=== PATIENT | male | born 1935 | race Hispanic/Latino ===

== ENCOUNTER 2016-12-18 16:32 | Emergency (ER) | payer MEDICARE ==
[2016-12-18 16:33] VITALS: BMI 27.3
[2016-12-18 16:51] VITALS: TEMP 97.5; O2SAT 98
[2016-12-18] MEDS ORDERED: Sodium Chloride 0.9% 1,000 ML IV STA (17:09)
--- NOTE | 2016-12-18 17:24 | ED PDOC ---
Arrival/HPI - General Chief Complaint: Abdominal Pain Time Seen by Provider: 12/18/16 17:09 Historian: Patient - History of Present Illness Narrative History of Present Illness (Text): 12/18/16 17:09 A 81 year old male presents to the emergency department complaining of non bloody watery diarrhea for the past 3 days. Patient denies any abdominal pain but states he does feel bloated. He denies any vomiting or other complaints at this time. PMD: Dr. Nguyen Time/Duration: Other Symptom Onset: Sudden Symptom Course: Unchanged Quality: Other Activities at Onset: Rest Context: Home Past Medical History - Provider Review Nursing Documentation Reviewed: Yes - Infectious Disease Hx of Infectious Diseases: None - Reproductive Currently : No - Cardiac Hx Cardiac Disorders: Yes Hx Congestive Heart Failure: Yes Hx Hypertension: Yes Other/Comment: bypass x5 in 2001 - Pulmonary Hx Respiratory Disorders: Yes Hx Chronic Obstructive Pulmonary Disease (COPD): Yes Other/Comment: pulmonary HTN - Neurological Hx Neurological Disorder: No - HEENT Hx HEENT Disorder: Yes ([place]) Hx Deafness: Yes ([place]) Other/Comment: b/l hearingaids - Renal Hx Renal Disorder: No - Endocrine/Metabolic Hx Endocrine Disorders: Yes Hx Diabetes Mellitus Type 2: Yes ([place], no meds) Hx Hypothyroidism: Yes - Hematological/Oncological Hx Cancer: Yes (prostate) - Integumentary Hx Dermatological Disorder: Yes Hx Psoriasis: Yes - Musculoskeletal/Rheumatological Hx Arthritis: Yes - Gastrointestinal Hx Gastrointestinal Disorders: Yes Hx Gastroesophageal Reflux: Yes Other/Comment: POOR APPETITE, DIARRHEA - Genitourinary/Gynecological Hx Genitourinary Disorders: Yes Hx Prostate Problems: Yes (PROSTATE CA) - Psychiatric Hx Psychophysiologic Disorder: No Hx Depression: No Hx Emotional Abuse: No Hx Psychosis: No Hx Substance Use: No - Surgical History Hx Joint Replacement: Yes (left knee) - Anesthesia Hx Anesthesia: Yes Hx Anesthesia Reactions: No - Suicidal Assessment Feels Threatened In Home Enviroment: No Family/Social History - Physician Review Nursing Documentation Reviewed: Yes Family/Social History: Unknown Family HX Smoking Status: Former Smoker Hx Alcohol Use: No Hx Substance Use: No Hx Substance Use Treatment: No Allergies/Home Meds Allergies/Adverse Reactions: Allergies Penicillins Allergy (Verified 12/18/16 16:40) SWELLING Home Medications: Home Meds Medication Instructions Recorded Confirmed Atorvastatin Calcium [Lipitor] 20 mg PO DAILY 05/05/14 12/18/16 Esomeprazole Magnesium [Nexium] 40 mg PO DAILY 05/05/14 12/18/16 Fenofibrate [Tricor] 145 mg PO DAILY 05/05/14 12/18/16 Fish Oil 1 cap PO DAILY 05/05/14 12/18/16 Sotalol HCl [Betapace] 80 mg PO BID 05/05/14 12/18/16 Tamsulosin [Flomax] 1 cap PO BID 05/05/14 12/18/16 Prednisone 5 mg PO DAILY 07/12/14 12/18/16 Aspirin [Ecotrin] 81 mg PO DAILY 07/29/15 12/18/16 Calcim/ Manesium 1 tab PO DAILY 07/29/15 12/18/16 Furosemide [Lasix] 20 mg PO DAILY 07/29/15 12/18/16 Ginko Biloba 1 tab PO DAILY 07/29/15 12/18/16 Levothyroxine [Synthroid] 0.075 mg PO DAILY 07/29/15 12/18/16 Multivit-Min/FA/Lycopen/Lutein 1 each PO DAILY 07/29/15 12/18/16 [Centrum Silver Tablet] busPIRone [Buspar] 5 mg PO DAILY 07/29/15 12/18/16 hydrALAZINE [hydralazine 25 mg PO BID 07/29/15 12/18/16 Hydrochloride] Riociguat [Adempas] 2.5 mg PO TID 12/18/16 12/18/16 Physical Exam - Physical Exam Narrative Physical Exam (Text): - Review of Systems Constitutional: Normal. absent: Fatigue, Weight Change, Fevers Eyes: Normal ENT: Normal Respiratory: Normal absent: SOB, Cough, Sputum Cardiovascular: Normal absent: Chest pain, Palpitations, Syncope Gastrointestinal: Diarrhea. Feeling bloated. absent: Abdominal pain, Nausea, Vomiting Genitourinary: Normal. absent: Dysuria, Frequency, Hematuria Musculoskeletal: Normal. absent: Arthralgias, Back Pain, Neck Pain Skin: Normal Neurological: Normal absent: Focal Weakness Endocrine: Normal Hemo/Lymphatic: Normal Psychiatric: Normal - Physical exam Patient appears age appropriate, speaking full sentences without difficulty - Systems Exam Head: Present: Atraumatic, Normocephalic Pupils: Present: PERRL Extraocular Muscles: Present: EOMI Conjunctiva: Present: Normal Mouth: Present: Moist Mucous Membranes Neck: Present: Normal Range of Motion. No: MIDLINE TENDERNESS, Paraspinal Tenderness Respiratory/Chest: Present: Clear to Auscultation, Good Air Exchange. No: Respiratory Distress, Accessory Muscle Use, Tachypneic Cardiovascular: Present: Regular Rate and Rhythm, Normal S1, S2, Peripheral Pulses Present. No: Murmurs Abdomen: Present: Normal Bowel Sounds. Slightly distended. hyper-tympanic to percussion. No: Tenderness, Peritoneal Signs, Rebound, Guarding Back: Present: Normal Inspection. No: Midline Tenderness, Paraspinal Tenderness Upper Extremity: Present: Normal Inspection. No: Cyanosis, Edema Lower Extremity: Present: Normal Inspection. No: Edema Neurological: Present: GCS=15, Speech Normal, cranial nerves II through XII fully intact with no cerebellar abnormality, neuro-sensory fully intact. No focal neurological deficits. Skin: Present: Warm, Dry, Normal Color. No: Rashes Lymphatic: Present: OX3, NI, NC Psychiatric: Present: Alert, Oriented x 3, Normal Insight, Normal Concentration Vital Signs Reviewed: Yes Vital Signs Temp Pulse Resp BP Pulse Ox 12/18/16 21:06 64 18 170/95 H 98 12/18/16 18:32 66 16 146/88 98 12/18/16 16:49 97.5 F L 62 18 158/80 H 98 Temperature: Afebrile Blood Pressure: Hypertensive Pulse: Regular Respiratory Rate: Normal Appearance: Positive for: Well-Appearing, Non-Toxic, Comfortable Pain Distress: None Mental Status: Positive for: Alert and Oriented X 3 Medical Decision Making ED Course and Treatment: 12/18/16 17:09 Impression: A 81 year old male with non bloody watery diarrhea and abdominal bloating. On physical examination, the patient has a slightly distended abdomen. Differential Diagnosis include but are not limited to: Viral illness vs. dehydration vs. electrolyte imbalance Plan: -- EKG -- Abdomen/Pelvis CT -- Labs -- Urinalysis -- IV Fluids -- Reassess and disposition Progress Notes: EKG: Ordered, reviewed, and independently interpreted the EKG. Rate : 60 BPM Rhythm : NSR Interpretation : No ST-segment elevations, normal intervals. Interpreted by me. 12/18/16 20:18 CT [facility] IMPRESSION: No acute solid visceral abnormality; prostate seeds; mild cardiomegaly and atherosclerotic disease; mild ileus, no obstruction, no CT findings of appendicitis or diverticulitis Additional findings as described above. Dictated and Authenticated by: Mary Hoyt MD pt in no distress pt informed of CT findings and I recommended observation in the hospital pt states he would like to be dc'd home instead On reevaluation, patient reports that he feels much better and would like to be discharged home. Patient's repeat abdominal exam is soft, nontender, non distended with positive bowel sounds in all 4 quadrants and no peritoneal signs. Patient is tolerating PO without any difficulty. Pt states he understands to return to the ER right away for new or worsening symptoms or for inability to f/u with PMD or specialist as instructed. Patient states that he fully agrees with and understands discharge instructions. States that he agrees with the plan and disposition. Verbalized and repeated discharge instructions and plan. I have given the patient opportunity to ask any additional questions. 12/22/16 08:06 spoke with patient this morning, states that he has no n/v, no f/c, states his abd distention resolved and he is eating well. - Lab Interpretations Microbiology Results: Microbiology Results 12/18/16 17:50 Blood-Venous Blood Culture - Preliminary NO GROWTH AFTER 3 DAYS 12/18/16 17:30 Blood-Venous Blood Culture - Preliminary NO GROWTH AFTER 3 DAYS Lab Results: 12/18/16 17:30 12/18/16 17:30 Lab Results 12/18/16 17:30: Sodium 140, Potassium 4.3, Chloride 108 H, Carbon Dioxide 25, Anion Gap 11, BUN 42 H, Creatinine 1.6 H, Est GFR ( Amer) 50, Est GFR ( Non-Af Amer) 41, Random Glucose 73, Calcium 8.7, Total Bilirubin 0.4, AST 28, ALT 29, Alkaline Phosphatase 32 L, Total Protein 6.3, Albumin 3.3, Globulin 3.0 , Albumin/Globulin Ratio 1.1, Lipase 125 12/18/16 17:30: PT 13.1 H, INR 1.21 H, APTT 24.5 12/18/16 17:30: WBC 7.0 D, RBC 4.05, Hgb 9.2 L, Hct 31.6 L, MCV 78.0 L, MCH 22.7 L, MCHC 29.1 L, RDW 16.3 H, Plt Count 172, MPV 9.4, Gran % 67.2, Lymph % ( Auto) 21.1 L, Nicholas % (Auto) 9.2 H, Eos % (Auto) 2.1, Baso % (Auto) 0.4, Gran # 4.69, Lymph # 1.5, Nicholas # 0.6, Eos # 0.2, Baso # 0.03 I have reviewed the lab results: Yes - RAD Interpretation Radiology Orders: 12/18/16 17:10 ABD & PELVIS W/O PO OR IV CONT [CT] Stat - Medication Orders Current Medication Orders: Discontinued Medications Sodium Chloride (Sodium Chloride 0.9%) 1,000 mls @ 1,000 mls/hr IV .Q1H STA Stop: 12/18/16 18:08 Last Admin: 12/18/16 17:30 Dose: 1,000 mls/hr - Scribe Statement The provider has reviewed the documentation as recorded by the Angelaibgerardo Malone Provider Scribe Attestation: All medical record entries made by the Scribe were at my direction and personally dictated by me. I have reviewed the chart and agree that the record accurately reflects my personal performance of the history, physical exam, medical decision making, and the department course for this patient. I have also personally directed, reviewed, and agree with the discharge instructions and disposition. Disposition/Present on Arrival - Present on Arrival Any Indicators Present on Arrival: No History of DVT/PE: No History of Uncontrolled Diabetes: No Urinary Catheter: No History of Decub. Ulcer: No History Surgical Site Infection Following: None - Disposition Have Diagnosis and Disposition been Completed?: Yes Diagnosis: Diarrhea Disposition: HOME/ ROUTINE Disposition Time: 20:29 Patient Plan: Discharge Condition: GOOD Discharge Instructions (ExitCare): Acute Diarrhea (ED), Ileus (ED) Additional Instructions: PLEASE RETURN TO THE ER RIGHT AWAY FOR NAUSEA, VOMITING, DIARRHEA, ABDOMINAL PAIN OR BLOATING, FEVERS, CHILLS. PLEASE RETURN TO THE EMERGENCY DEPARTMENT FOR NEW OR WORSENING SYMPTOMS. RETURN RIGHT AWAY IF YOU CANNOT FOLLOW UP WITH YOUR PRIMARY CARE DOCTOR, CLINIC, OR SPECIALIST IN 1-2 DAYS. Referrals: Riccardo Nguyen MD [Family Provider] - Follow up with primary
[2016-12-18 17:48] LABS: ALB/GLOB RATIO 1.1 (1.1-1.8); ALBUMIN 3.3 g/dL (3.0-4.8); CALCIUM 8.7 mg/dL (8.4-10.5)
[2016-12-18 17:50] LABS: INR 1.21 (0.93-1.08); PARTIAL THROMBOPLASTIN TIME 24.5 Seconds (23.7-30.8); PROTHROMBIN TIME 13.1 Seconds (9.9-11.8)
[2016-12-18 17:52] LABS: BASO # 0.03 K/mm3 (0.0-2.0); BASO % 0.4 % (0.0-3.0); EOS # 0.2 (0.0-0.7); EOS % 2.1 % (1.5-5.0); GRAN # 4.69 (1.4-6.5); GRAN % 67.2 % (50.0-68.0); HEMOGLOBIN 9.2 gm/dL (14.0-18.0); LYMPH # 1.5 (1.2-3.4); LYMPH % 21.1 % (22.0-35.0); MEAN CORPUSCULAR HEMOGLOBIN 22.7 pg (25.0-35.0); MEAN CORPUSCULAR HGB CONC 29.1 g/dl (31.0-37.0); MEAN PLATELET VOLUME 9.4 fl (7.0-11.0); MONO # 0.6 (0.1-0.6); MONO % 9.2 % (1.0-6.0); PLATELET COUNT 172 10^3/uL (120.0-450.0); RBC 4.05 10^6/uL (3.5-6.1); RED CELL DISTRIBUTION WIDTH 16.3 % (11.5-14.5)
--- NOTE | 2016-12-18 20:16 | CT ---
EXAM: CT Abdomen and Pelvis Without Intravenous Contrast CLINICAL HISTORY: 81 years old, male; Pain; Abdominal pain; Acute; Additional info: Diarrhea TECHNIQUE: Axial computed tomography images of the abdomen and pelvis without intravenous contrast. This CT exam was performed using one or more of the following dose reduction techniques: automated exposure control, adjustment of the mA and/or kV according to patient size, and/or use of iterative reconstruction technique. Coronal and sagittal reformatted images were created and reviewed. EXAM DATE/TIME: 12/18/2016 5:10 PM COMPARISON: There are no prior studies for comparison. FINDINGS: Lower thorax: The heart is mildly enlarged. There are coronary calcifications. There is atelectasis and scarring at the lung bases. There is a hiatal hernia. ABDOMEN: Liver: unremarkable Gallbladder and bile ducts: unremarkable Pancreas: Pancreas is atrophic and fatty replaced. Spleen: There is a small granuloma in the spleen. Adrenals: unremarkable Kidneys and ureters: There is focal scarring in both kidneys. There is mild atrophy.There is no pelvocaliectasis or ureterectasis. Stomach and bowel: Stomach is almost empty. Rotation is normal. Small bowel is mildly distended with air and fluid. There is no obstruction. Terminal ileum is unremarkable. Appendix is unremarkable.There is diverticulosis. Appendix: See stomach and bowel PELVIS: Bladder: Bladder is incompletely distended. Reproductive: There are multiple seeds within the prostate. Seminal vesicles have the expected configuration. ABDOMEN and PELVIS: Intraperitoneal space: There is no free air. There is no free fluid. Bones/joints: There are postsurgical changes of median sternotomy. Bony structures are osteopenic.There are degenerative changes in the osseus structures. Soft tissues: There are surgical clips in both inguinal regions. There are bilateral fat-containing inguinal hernias. Vasculature: There are vascular calcifications. Lymph nodes: There is no pathologic adenopathy. IMPRESSION: No acute solid visceral abnormality; prostate seeds; mild cardiomegaly and atherosclerotic disease; mild ileus, no obstruction, no CT findings of appendicitis or diverticulitis Additional findings as described above.
[2016-12-18 21:08] VITALS: BP 170/95; PULSE 64; RESP 18
--- NOTE | 2016-12-19 10:42 | CARD ---
APPROVED REPORT EKG Measurement Heart [id number] <Conclusion> Normal sinus rhythm Small q waves 2,3,F, possible IMI, age unknown
== END 2016-12-18 21:04 | disposition home or self-care (01) ==
LOC: ED 16:32
DX: R19.7 Diarrhea, unspecified (principal); I11.0 Hypertensive heart disease with heart failure; I50.9 Heart failure, unspecified; E11.9 Type 2 diabetes mellitus without complications; Z87.891 Personal history of nicotine dependence
CPT/HCPCS: 74176; 80053; 83690; 85025; 85610; 85730; 87040; 93005; 96360; 99284; J7040

== ENCOUNTER 2017-01-23 18:43 | Emergency (ER) | payer MEDICARE ==
[2017-01-23 18:43] VITALS: BMI 27.3
[2017-01-23 19:05] VITALS: RESP 16; TEMP 98.1
[2017-01-23] MEDS ORDERED: Tmp-Smz 800 mg-160 mg DS Tab PO STA (19:37)
[2017-01-23] MEDS ORDERED: TDAP Vaccine 0.5 mL Syr IM ONE (19:37)
--- NOTE | 2017-01-23 19:37 | ED PDOC ---
Arrival/HPI - General Historian: Patient <Alli Alvarez - Last Filed: 01/23/17 22:10> <Osmar Cast - Last Filed: 01/23/17 22:45> - General Chief Complaint: Trauma Time Seen by Provider: 01/23/17 19:20 - History of Present Illness Narrative History of Present Illness (Text): 01/23/17 19:30 81 y/o male, pmh including, renal failure/chf/dm/cad/hyperlipidemia, penicillin allergy, last tetanus doesn't remember, c/o slipped and fall on the rt. sided facial region x 2 hours. Pt. stated that he slipped and fall on the rt. side of the face, sustained rt. eyebowl laceration and no LOC, no nausea or vomiting , no fever or chills, no headache or night sweat, no dizziness, no other medical or psychological complaints. (Alli Alvarez) Past Medical History - Provider Review Nursing Documentation Reviewed: Yes - Infectious Disease Hx of Infectious Diseases: None - Reproductive Currently : No - Cardiac Hx Cardiac Disorders: Yes Hx Congestive Heart Failure: Yes Hx Hypertension: Yes Other/Comment: bypass x5 in 2001 - Pulmonary Hx Respiratory Disorders: Yes Hx Chronic Obstructive Pulmonary Disease (COPD): Yes Other/Comment: pulmonary HTN - Neurological Hx Neurological Disorder: No - HEENT Hx HEENT Disorder: Yes ([place]) Hx Deafness: Yes ([place]) Other/Comment: b/l hearingaids - Renal Hx Renal Disorder: No - Endocrine/Metabolic Hx Endocrine Disorders: Yes Hx Diabetes Mellitus Type 2: Yes ([place], no meds) Hx Hypothyroidism: Yes - Hematological/Oncological Hx Cancer: Yes (prostate) - Integumentary Hx Dermatological Disorder: Yes Hx Psoriasis: Yes - Musculoskeletal/Rheumatological Hx Arthritis: Yes - Gastrointestinal Hx Gastrointestinal Disorders: Yes Hx Gastroesophageal Reflux: Yes Other/Comment: POOR APPETITE, DIARRHEA - Genitourinary/Gynecological Hx Genitourinary Disorders: Yes Hx Prostate Problems: Yes (PROSTATE CA) - Psychiatric Hx Psychophysiologic Disorder: No Hx Depression: No Hx Emotional Abuse: No Hx Psychosis: No Hx Substance Use: No - Surgical History Hx Joint Replacement: Yes (left knee) - Anesthesia Hx Anesthesia: Yes Hx Anesthesia Reactions: No - Suicidal Assessment Feels Threatened In Home Enviroment: No <Alli Alvarez - Last Filed: 01/23/17 22:10> Family/Social History - Physician Review Nursing Documentation Reviewed: Yes Family/Social History: Unknown Family HX Smoking Status: Former Smoker Hx Alcohol Use: No Hx Substance Use: No Hx Substance Use Treatment: No <Alli Alvarez - Last Filed: 01/23/17 22:10> Allergies/Home Meds <Alli Alvarez - Last Filed: 01/23/17 22:10> <Osmar Cast - Last Filed: 01/23/17 22:45> Allergies/Adverse Reactions: Allergies Penicillins Allergy (Verified 01/23/17 19:05) SWELLING Home Medications: Home Meds Medication Instructions Recorded Confirmed Atorvastatin Calcium [Lipitor] 20 mg PO DAILY 05/05/14 01/23/17 Esomeprazole Magnesium [Nexium] 4 mg PO DAILY 05/05/14 01/23/17 Fenofibrate [Tricor] 145 mg PO DAILY 05/05/14 01/23/17 Fish Oil 1 cap PO DAILY 05/05/14 01/23/17 Sotalol HCl [Betapace] 80 mg PO BID 05/05/14 01/23/17 Tamsulosin [Flomax] 1 cap PO BID 05/05/14 01/23/17 Prednisone 5 mg PO DAILY 07/12/14 01/23/17 Aspirin [Ecotrin] 81 mg PO DAILY 07/29/15 01/23/17 Calcim/ Manesium 1 tab PO DAILY 07/29/15 01/23/17 Furosemide [Lasix] 20 mg PO DAILY 07/29/15 01/23/17 Ginko Biloba 1 tab PO DAILY 07/29/15 01/23/17 Levothyroxine [Synthroid] 0.075 mg PO DAILY 07/29/15 01/23/17 Multivit-Min/FA/Lycopen/Lutein 1 each PO DAILY 07/29/15 12/18/16 [Centrum Silver Tablet] busPIRone [Buspar] 5 mg PO DAILY 07/29/15 01/23/17 hydrALAZINE [hydralazine 25 mg PO BID 07/29/15 01/23/17 Hydrochloride] Riociguat [Adempas] 2.5 mg PO TID 12/18/16 01/23/17 Calcium Carb/Vitamin D3/Vit K1 1 tab PO DAILY 01/23/17 01/23/17 [Citracal Soft Chew] Cholecalciferol [Vitamin D] 1,000 iu PO DAILY 01/23/17 01/23/17 Fluticasone/Vilanterol [Breo 1 pow IH 01/23/17 Ellipta] Furosemide [Lasix] 01/23/17 Review of Systems - Review of Systems Constitutional: absent: Fatigue, Fevers Eyes: absent: Vision Changes ENT: absent: Hearing Changes Respiratory: absent: SOB, Cough Cardiovascular: absent: Chest Pain Gastrointestinal: absent: Abdominal Pain, Nausea, Vomiting Musculoskeletal: absent: Arthralgias, Back Pain, Neck Pain, Joint Swelling Skin: Laceration. absent: Rash, Pruritis, Skin Lesions, Abscess, Ulcer, Cellulitis Neurological: absent: Headache, Dizziness, Focal Weakness, Gait Changes <Alli Alvarez Q - Last Filed: 01/23/17 22:10> Physical Exam Vital Signs Reviewed: Yes Temperature: Afebrile Blood Pressure: Hypertensive Pulse: Regular Respiratory Rate: Normal Appearance: Positive for: Well-Appearing, Non-Toxic, Comfortable Pain Distress: Mild Mental Status: Positive for: Alert and Oriented X 3 - Systems Exam Head: Present: Atraumatic, Normocephalic, Other (Facial: visible rt. eyebrow tearing laceration approx. 2.5cm noted with mild oozing, mild superfical skin flapping avulsion noted on the rt. lateral eyebrow region approx. 0.75cm diameter, there is rt. periorbital swelling. ) Pupils: Present: PERRL Extroacular Muscles: Present: EOMI Conjunctiva: Present: Normal Ears: Present: NORMAL TM, Normal Canal. No: Erythema Mouth: Present: Moist Mucous Membranes Nose (External): Present: Contusion, Other (+ttp). No: Abrasion, Laceration, Lesions Neck: Present: Normal Range of Motion, Trachea Midline. No: MIDLINE TENDERNESS , Paraspinal Tenderness, Lymphadenopathy Respiratory/Chest: Present: Clear to Auscultation, Good Air Exchange. No: Respiratory Distress, Accessory Muscle Use Cardiovascular: Present: Regular Rate and Rhythm, Normal S1, S2. No: Murmurs Abdomen: Present: Normal Bowel Sounds. No: Tenderness, Distention, Peritoneal Signs Back: Present: Normal Inspection. No: Midline Tenderness, Paraspinal Tenderness , Pain with Leg Raise, Decubitus Ulcer Upper Extremity: Present: Normal Inspection. No: Cyanosis, Edema Lower Extremity: Present: Normal Inspection. No: Edema Neurological: Present: GCS=15, Speech Normal, Motor Func Grossly Intact, Gait Normal, Memory Normal Skin: Present: Warm, Dry, Normal Color. No: Rashes Psychiatric: Present: Alert, Oriented x 3, Normal Insight, Normal Concentration <Alli Alvarez - Last Filed: 01/23/17 22:10> Medical Decision Making - RAD Interpretation Band Saw Marker: Radiologist <Alli Alvarez - Last Filed: 01/23/17 22:10> <Osmar Cast - Last Filed: 01/23/17 22:45> ED Course and Treatment: 01/23/17 19:46 -tdap/bactrim ds -CT head and facial 01/23/17 22:10 -CT head show no acute traumatic findings -CT facial show nasal fracture with sinusitis -I will put the patient on the clindamycin since he is allergic to penicillin. -sensation intact, motor 5/5, wound irrigate with 1000cc of normal saline, clean with betadine, 1% lidocaine injected approx. 0.5cc, 6-0 nylon made 4 sutures, hemostasis obtained, dermabond to the skin flap, bacitracin applied, sensation intact, motor 5/5. -Discharge home with clindamycin, avoid blowing or rubbing the nose, bacitracin oinment, take tylenol at home for pain as needed, sutures usually can be removed by day 6-7, follow up with your own pmd and ENT within 2 days, return to the ER for any new or worsening signs or symptoms. (Alli Alvarez) - RAD Interpretation Radiology Orders: 01/23/17 19:37 HEAD W/O CONTRAST [CT] Stat MAXILLOFACIAL W/O CONTRAST [CT] Stat CT Head: FINDINGS: Limitations: The examination is motion limited. 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 No intracranial hemorrhage. There is global parenchymal volume loss. Periventricular hypoattenuation is likely due to small vessel disease. No evidence of evolved territorial infarct or cerebral edema. No mass effect or midline shift. Ventricles: Prominent ventricles secondary to volume loss. Bones/joints: No acute osseous abnormality. Soft tissues: No soft tissue swelling. Sinuses: Opacified left sphenoid sinus. Mastoid air cells: Mastoid air cells are well-aerated. IMPRESSION: 1. Opacified left sphenoid sinus. 2. Motion limited study without acute intracranial findings. Thank you for allowing us to participate in the care of your patient. Dictated and Authenticated by: Oscar Mcbride MD 01/23/2017 9:43 PM Eastern Time ( & John) CT Facial: FINDINGS: Bones/joints: Nondisplaced fracture of the right nasal bone. Soft tissues: Right periorbital soft tissue swelling. Orbits: Unremarkable. Sinuses: Completely opacified left sphenoid sinus with high density secretions. Mucosal thickening of the frontal recesses. IMPRESSION: 1. Completely opacified left sphenoid sinus with high density secretions. 2. Nondisplaced fracture of the right nasal bone, indeterminate acuity. No fracture of the bony orbit. Thank you for allowing us to participate in the care of your patient. Dictated and Authenticated by: Oscar Mcbride MD 01/23/2017 9:48 PM Eastern Time ( & John) (Alli Alvarez) - Medication Orders Current Medication Orders: Discontinued Medications Lidocaine HCl (Lidocaine 1% (20ml)) Confirm Administered Dose 20 ml .ROUTE .STK- MED ONE Stop: 01/23/17 21:29 Tetanus/Reduced Diphtheria/Acell Pertussis (Boostrix Vaccine Inj) 0.5 ml IM .ONCE ONE Stop: 01/23/17 19:38 Last Admin: 01/23/17 20:01 Dose: 0.5 ml Trimethoprim/Sulfamethoxazole (Bactrim Ds Tab) 1 tab PO STAT STA PRN Reason: Protocol Stop: 01/23/17 19:38 Last Admin: 01/23/17 20:06 Dose: 1 tab - PA / FLATWORK CATCHER / Resident Statement RACHAEL has reviewed & agrees with the documentation as recorded. <Alli Alvarez - Last Filed: 01/23/17 22:10> - PA / FLATWORK CATCHER / Resident Statement RACHAEL has reviewed & agrees with the documentation as recorded. RACHAEL has examined the patient and agrees with the treatment plan. <Osmar Cast - Last Filed: 01/23/17 22:45> Disposition/Present on Arrival - Present on Arrival Any Indicators Present on Arrival: No History of DVT/PE: No History of Uncontrolled Diabetes: No Urinary Catheter: No History of Decub. Ulcer: No History Surgical Site Infection Following: None - Disposition Have Diagnosis and Disposition been Completed?: Yes Disposition Time: 19:48 Patient Plan: Discharge <Alli Alvarez - Last Filed: 01/23/17 22:10> <Osmar Cast - Last Filed: 01/23/17 22:45> - Disposition Diagnosis: Accidental fall, Facial laceration, Facial contusion, Facial abrasion, Nasal fracture, Sinusitis Disposition: HOME/ ROUTINE Patient Problems: Current Active Problems Problem Status Onset Accidental fall Acute Facial abrasion Acute Facial contusion Acute Facial laceration Acute Nasal fracture Acute Sinusitis Acute Condition: GOOD Additional Instructions: -Discharge home with clindamycin, avoid blowing or rubbing the nose, bacitracin oinment, take tylenol at home for pain as needed, sutures usually can be removed by day 6-7, follow up with your own pmd and ENT within 2 days, return to the ER for any new or worsening signs or symptoms. Prescriptions: Clindamycin [Cleocin] 300 mg PO TID #30 cap Referrals: Riccardo Nguyen MD [Primary Care Provider] - Follow up with primary Chacho Vazquez DO [Staff Provider] - Follow up with primary Forms: [employer] (Welsh)
[2017-01-23] MEDS ORDERED: Lidocaine 1% Inj (20ml) ONE (21:28)
[2017-01-23 22:36] VITALS: PULSE 76; O2SAT 98
[2017-01-24 01:02] VITALS: BP 138/80
--- NOTE | 2017-01-24 07:48 | CT ---
PROCEDURE: CT HEAD WITHOUT CONTRAST. HISTORY: fall COMPARISON: 05/18/2013 TECHNIQUE: Axial computed tomography images were obtained through the head/brain without intravenous contrast. Radiation dose: Total exam DLP = 7-5.84 mGy-cm. This CT exam was performed using one or more of the following dose reduction techniques: Automated exposure control, adjustment of the mA and/or kV according to patient size, and/or use of iterative reconstruction technique. FINDINGS: Examination is somewhat limited due to patient motion artifact. HEMORRHAGE: No intracranial hemorrhage. BRAIN: No mass effect or edema. 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 Old small right cerebellar hemispheric lacunar infarct. No evidence of acute infarct. Minimal chronic periventricular white matter ischemic change. Mild diffuse age-appropriate cerebral atrophy. VENTRICLES: Unremarkable. No hydrocephalus. CALVARIUM: Unremarkable. PARANASAL SINUSES: Chronic sphenoid sinusitis. MASTOID AIR CELLS: Unremarkable as visualized. No inflammatory changes. OTHER FINDINGS: None. IMPRESSION: No intracranial mass, hemorrhage or evidence of acute infarct. Limited examination due to patient motion. 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 Age appropriate involutional change. Chronic sphenoid sinusitis. Preliminary interpretation of this examination was reported by [facility] at 9:43 p.m. on 01/23/2017. There is concurrence of this report with the preliminary interpretation.
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
== END 2017-01-23 22:30 | disposition home or self-care (01) ==
LOC: ED 18:43
DX: S01.111A Laceration without foreign body of right eyelid and periocular area, initial encounter (principal); S02.2XXA Fracture of nasal bones, initial encounter for closed fracture; W01.0XXA Fall on same level from slipping, tripping and stumbling without subsequent striking against object, initial encounter; J32.9 Chronic sinusitis, unspecified; I10 Essential (primary) hypertension; I50.9 Heart failure, unspecified; I25.10 Atherosclerotic heart disease of native coronary artery without angina pectoris; E78.5 Hyperlipidemia, unspecified; E11.9 Type 2 diabetes mellitus without complications; Z88.0 Allergy status to penicillin; Z23 Encounter for immunization; Z87.891 Personal history of nicotine dependence

== ENCOUNTER 2017-07-06 14:36 | Emergency (ER) | payer OTHER, MEDICARE ==
[2017-07-06 14:37] VITALS: BMI 27.3
[2017-07-06 14:47] VITALS: RESP 18; TEMP 98.1; O2SAT 97
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
[2017-07-06 16:21] LABS: BASO # 0.02 K/mm3 (0.0-2.0); BASO % 0.4 % (0.0-3.0); EOS # 0.1 (0.0-0.7); EOS % 2.1 % (1.5-5.0); GRAN # 3.74 (1.4-6.5); GRAN % 73.1 % (50.0-68.0); HEMOGLOBIN 9.4 g/dL (14.0-18.0); LYMPH # 0.9 (1.2-3.4); LYMPH % 16.6 % (22.0-35.0); MEAN CELL VOLUME 82.2 fl (80.0-105.0); MEAN CORPUSCULAR HEMOGLOBIN 24.6 pg (25.0-35.0); MEAN CORPUSCULAR HGB CONC 29.9 g/dl (31.0-37.0); MEAN PLATELET VOLUME 10.5 fl (7.0-11.0); MONO # 0.4 (0.1-0.6); MONO % 7.8 % (1.0-6.0); RBC 3.82 10^6/uL (3.5-6.1); RED CELL DISTRIBUTION WIDTH 15.8 % (11.5-14.5); WHITE BLOOD COUNT 5.1 10^3/ul (4.5-11.0)
[2017-07-06 16:28] LABS: ALB/GLOB RATIO 1.3 (1.1-1.8); ALBUMIN 3.7 g/dL (3.0-4.8); ALT/SGPT 32 U/L (7-56); AST/SGOT 30 U/L (17-59); BLOOD UREA NITROGEN 44 mg/dL (7-21); CALCIUM 9.5 mg/dL (8.4-10.5); GFR AFRICAN-AMERICAN 47; GFR NON-AFRICAN AMERICAN 39; MAGNESIUM 1.6 mg/dL (1.7-2.2)
[2017-07-06 16:36] LABS: TROPONIN I < 0.01 ng/mL
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
[2017-07-06 17:44] VITALS: BP 138/69; PULSE 69
--- NOTE | 2017-07-07 10:06 | CARD ---
APPROVED REPORT EKG Measurement Heart [id number] <Conclusion> Normal sinus rhythm Inferior infarct, old Prolonged QTc
== END 2017-07-06 18:00 | disposition home or self-care (01) ==
LOC: ED 14:36
DX: S01.01XA Laceration without foreign body of scalp, initial encounter (principal); V43.52XA Car driver injured in collision with other type car in traffic accident, initial encounter; E11.9 Type 2 diabetes mellitus without complications; E03.9 Hypothyroidism, unspecified; I25.10 Atherosclerotic heart disease of native coronary artery without angina pectoris; Z85.46 Personal history of malignant neoplasm of prostate; Z87.891 Personal history of nicotine dependence

== ENCOUNTER 2017-08-04 16:13 | Inpatient (IN) | payer MEDICARE ==
[2017-08-04 16:14] VITALS: BMI 27.3
--- NOTE | 2017-08-04 17:32 | ED PDOC ---
Arrival/HPI - General Chief Complaint: Flu-like Symptoms Time Seen by Provider: 08/04/17 16:48 Historian: Patient - History of Present Illness Narrative History of Present Illness (Text): 08/04/17 17:27 81 year old male, with past medical history of renal failure, CHF, COPD, diabetes, CAD, hyperlipidemia and penicillin allergy, presents to the Emergency department complaining of fever, productive cough, sinus congestion, generalized weakness and loss of appetite for past few days. Patient additionally informs diarrhea but denies abdominal pain. Patient denies any nausea, vomiting, chest pain, shortness of breath, sick contact or any other complaints. Time/Duration: < week Symptom Onset: Gradual Symptom Course: Unchanged Quality: Aching Activities at Onset: Light Context: Home Past Medical History - Provider Review Nursing Documentation Reviewed: Yes - Infectious Disease Hx of Infectious Diseases: None - Cardiac Hx Cardiac Disorders: Yes Hx Congestive Heart Failure: Yes Hx Hypertension: Yes Other/Comment: bypass x5 in 2001 - Pulmonary Hx Respiratory Disorders: Yes Hx Chronic Obstructive Pulmonary Disease (COPD): Yes Other/Comment: pulmonary HTN - Neurological Hx Neurological Disorder: No - HEENT Hx HEENT Disorder: Yes ([place]) Hx Deafness: Yes ([place]) Other/Comment: b/l hearingaids - Renal Hx Renal Disorder: No - Endocrine/Metabolic Hx Endocrine Disorders: Yes Hx Diabetes Mellitus Type 2: Yes (boarderline, no meds) Hx Hypothyroidism: Yes - Hematological/Oncological Hx Cancer: Yes (prostate) - Integumentary Hx Dermatological Disorder: Yes Hx Psoriasis: Yes - Musculoskeletal/Rheumatological Hx Arthritis: Yes - Gastrointestinal Hx Gastrointestinal Disorders: Yes Hx Gastroesophageal Reflux: Yes Other/Comment: POOR APPETITE, [place] - Genitourinary/Gynecological Hx Genitourinary Disorders: Yes Hx Prostate Problems: Yes (PROSTATE CA) - Psychiatric Hx Psychophysiologic Disorder: No Hx Depression: No Hx Emotional Abuse: No Hx Psychosis: No Hx Substance Use: No - Surgical History Hx Joint Replacement: Yes (left knee) - Anesthesia Hx Anesthesia: Yes Hx Anesthesia Reactions: No Hx Malignant Hyperthermia: No - Suicidal Assessment Feels Threatened In Home Enviroment: No Family/Social History - Physician Review Nursing Documentation Reviewed: Yes Family/Social History: Unknown Family HX Smoking Status: Former Smoker Hx Alcohol Use: No Hx Substance Use: No Hx Substance Use Treatment: No Allergies/Home Meds Allergies/Adverse Reactions: Allergies Penicillins Allergy (Verified 08/09/17 19:05) SWELLING Home Medications: Home Meds Medication Instructions Recorded Confirmed Atorvastatin Calcium [Lipitor] 20 mg PO DAILY 05/05/14 02/15/17 Fenofibrate [Tricor] 145 mg PO DAILY 05/05/14 02/15/17 Sotalol HCl [Betapace] 80 mg PO BID 05/05/14 02/15/17 Tamsulosin [Flomax] 1 cap PO BID 05/05/14 02/15/17 Aspirin [Ecotrin] 81 mg PO MWF 07/29/15 02/15/17 Calcim/ Manesium 1 tab PO DAILY 07/29/15 01/23/17 Furosemide [Lasix] 20 mg PO DAILY 07/29/15 02/15/17 Ginko Biloba 1 tab PO DAILY 07/29/15 02/15/17 Levothyroxine [Synthroid] 0.075 mg PO DAILY 07/29/15 02/15/17 Multivit-Min/FA/Lycopen/Lutein 1 each PO DAILY 07/29/15 02/15/17 [Centrum Silver Tablet] busPIRone [Buspar] 5 mg PO DAILY 07/29/15 02/15/17 hydrALAZINE [Apresoline] 25 mg PO BID 07/29/15 02/15/17 Riociguat [Adempas] 2.5 mg PO TID 12/18/16 02/15/17 Calcium Carb/Vitamin D3/Vit K1 1 tab PO DAILY 01/23/17 01/23/17 [Citracal Soft Chew] Fluticasone/Vilanterol [Breo 1 pow IH 01/23/17 Ellipta 100-25 Mcg INH] Review of Systems - Physician Review All systems were reviewed & negative as marked: Yes - Review of Systems Constitutional: Fevers Eyes: Normal ENT: Sinus Congestion Respiratory: Cough. absent: SOB Cardiovascular: Normal. absent: Chest Pain Gastrointestinal: Diarrhea. absent: Abdominal Pain, Nausea, Vomiting Genitourinary Male: Normal Musculoskeletal: Other (generalized weakness) Skin: Normal Neurological: Normal Endocrine: Normal Hemo/Lymphatic: Normal Psychiatric: Normal Physical Exam Vital Signs Reviewed: Yes Vital Signs Temp Pulse Resp BP Pulse Ox 08/04/17 21:40 72 18 152/82 H 95 08/04/17 20:14 80 18 160/82 H 97 08/04/17 16:28 97.9 F 74 18 124/65 97 Temperature: Afebrile Blood Pressure: Normal Pulse: Regular Respiratory Rate: Normal Appearance: Positive for: Well-Appearing, Non-Toxic, Comfortable Pain Distress: None Mental Status: Positive for: Alert and Oriented X 3 - Systems Exam Head: Present: Atraumatic, Normocephalic Pupils: Present: PERRL Extroacular Muscles: Present: EOMI Conjunctiva: Present: Normal Mouth: Present: Moist Mucous Membranes Neck: Present: Normal Range of Motion Respiratory/Chest: Present: Good Air Exchange, Rales, Rhonchi. No: Respiratory Distress, Accessory Muscle Use Cardiovascular: Present: Regular Rate and Rhythm, Normal S1, S2. No: Murmurs Abdomen: Present: Normal Bowel Sounds. No: Tenderness, Distention, Peritoneal Signs Back: Present: Normal Inspection Upper Extremity: Present: Normal Inspection. No: Cyanosis, Edema Lower Extremity: Present: Normal Inspection. No: Edema Neurological: Present: GCS=15, CN II-XII Intact, Speech Normal Skin: Present: Warm, Dry, Normal Color. No: Rashes Psychiatric: Present: Alert, Oriented x 3, Normal Insight, Normal Concentration Medical Decision Making ED Course and Treatment: 08/04/17 17:34 Impression: 81 year old male presents to the Emergency department for flu-like symptoms. Plan: -- VBG -- Labs -- Chest X-ray -- Blood Culture -- Rapid Flu -- Reassess and disposition Progress Notes: 08/04/17 19:30 EKG: Ordered, reviewed, and independently interpreted the EKG. Rate : 69 BPM Rhythm : NSR Interpretation : Sinus rhythm with premature supraventricular complexes. Comparison: EKG similar to performed on 07/06/17. Chest X-ray reviewed. No changes noted from Chest X-ray performed on 07/06/17. 08/04/17 20:09 EKG and Chest X-ray reviewed and shows no significant changes from those performed on 07/06/17. Patient's chief complaint was COPD, however due to troponin level of 5, it is believed that patient may have had a silent NH. Patient is recommended to follow-up with a credit risk manager. Patient will be admitted to the hospitalist's service in telemetry for further observation. Aspirin and Nitroglycerin will be administered to patient. Patient is already on beta fabrizio. 08/04/17 20:[address] May, who is aware and agrees with plan. - Lab Interpretations Microbiology Results: Microbiology Results 08/04/17 18:10 Blood-Venous Blood Culture - Preliminary NO GROWTH AFTER 48 HOURS 08/04/17 17:50 Blood-Venous Blood Culture - Preliminary NO GROWTH AFTER 48 HOURS Lab Results: 08/04/17 17:50 08/04/17 17:50 Lab Results 08/04/17 18:10: Influenza Typ A,B (EIA) Negative for flu a/b 08/04/17 17:50: Sodium 142, Chloride 107, Potassium 4.1, Carbon Dioxide 27, Anion Gap 13, BUN 35 H, Creatinine 1.7 H, Est GFR ( Amer) 47, Est GFR ( Non-Af Amer) 39, Random Glucose 81, Calcium 9.1, Total Bilirubin 0.3, AST 49, ALT 33, Alkaline Phosphatase 33 L D, Lactate Dehydrogenase 453, Total Creatine Kinase 121, Troponin I 5.11 H* D, NT-Pro-B Natriuret Pep 7210 H, Total Protein 5.5 L, Albumin 2.9 L, Globulin 2.6, Albumin/Globulin Ratio 1.1 08/04/17 17:50: pO2 41, VBG pH 7.27 L, VBG pCO2 57.0, VBG HCO3 26.2, VBG Total CO2 27.9, VBG O2 Sat (Calc) 80.1 H, VBG Base Excess -1.7 L, VBG Potassium 4.1, Sodium 139.0, Chloride 109.0 H, Glucose 86, Lactate 1.2, FiO2 21.0, Venous Blood Potassium 4.1 08/04/17 17:50: PT 15.9 H, INR 1.39 H 08/04/17 17:50: WBC 4.6, RBC 3.85, Hgb 9.1 L, Hct 31.1 L, MCV 80.8, MCH 23.6 L, MCHC 29.3 L, RDW 16.3 H, Plt Count 109 L, MPV 10.1, Gran % 74.1 H, Lymph % (Auto ) 12.7 L, [place] % (Auto) 9.5 H, Eos % (Auto) 3.5, Baso % (Auto) 0.2, Gran # 3.43 , Lymph # (Auto) 0.6 L, [place] # (Auto) 0.4, Eos # (Auto) 0.2, Baso # (Auto) 0.01 - RAD Interpretation Radiology Orders: 08/04/17 17:27 CHEST PORTABLE [RAD] Stat - Medication Orders Current Medication Orders: Discontinued Medications Acetylcysteine (Acetylcysteine 20%) 6 ml PO BID ADRIAN Stop: 08/06/17 23:59 Last Admin: 08/06/17 10:45 Dose: 6 ml Albuterol Sulfate (Albuterol 0.083% Inhal Nannette (2.5 Mg/3 Ml) Ud) 5 mg INH STAT STA Stop: 08/04/17 18:41 Last Admin: 08/04/17 21:26 Dose: 5 mg Albuterol/Ipratropium (Duoneb 3 Mg/0.5 Mg (3 Ml) Ud) 3 ml IH STAT STA Stop: 08/04/17 18:41 Last Admin: 08/04/17 21:26 Dose: 3 ml Aspirin (Aspirin Chewable) 324 mg PO STAT STA Stop: 08/04/17 19:25 Last Admin: 08/04/17 20:25 Dose: 324 mg Aspirin (Ecotrin) 81 mg PO [facility] [place]irin (Ecotrin) 81 mg PO DAILY [facility] Last Admin: 08/06/17 10:44 Dose: 81 mg Atorvastatin Calcium (Lipitor) 20 mg PO DAILY [facility] Last Admin: 08/06/17 10:44 Dose: 20 mg Buspirone HCl (Buspar) 5 mg PO DAILY [facility] PRN Reason: Protocol Last Admin: 08/06/17 10:44 Dose: 5 mg Behavioural Document 08/06/17 10:44 CD (Rec: 08/06/17 10:44 CD [id number]) Maintenance Maintenance Dose Yes Re-Assess: Reassess Psych Meds Document 08/06/17 11:44 CD (Rec: 08/06/17 12:27 CD [id number]) Reassess Psych Med Effective Clopidogrel Bisulfate (Plavix) 75 mg PO DAILY [facility] Last Admin: 08/06/17 10:43 Dose: 75 mg Clopidogrel Bisulfate (Plavix) 300 mg PO STAT STA Stop: 08/05/17 08:01 Last Admin: 08/05/17 08:14 Dose: 300 mg Fenofibrate (Tricor) 145 mg PO DAILY [facility] Last Admin: 08/06/17 10:43 Dose: 145 mg Furosemide (Lasix) 20 mg PO DAILY [facility] Last Admin: 08/06/17 10:44 Dose: 20 mg MAR Blood Pressure Document 08/06/17 10:44 CD (Rec: 08/06/17 10:44 CD [id number]) Blood Pressure Blood Pressure (100/60-150/90) 170/71 Furosemide (Lasix) 40 mg IVP ONCE ONE Stop: 08/05/17 01:17 Last Admin: 08/05/17 01:26 Dose: 40 mg MAR Blood Pressure Document 08/05/17 01:26 AP (Rec: 08/05/17 01:26 AP [id number]) Blood Pressure Blood Pressure (100/60-150/90) 148/78 IVP Administration Document 08/05/17 01:26 AP (Rec: 08/05/17 01:26 AP [id number]) Charges for Administration # of IVP Administrations 1 Guaifenesin (Robitussin) 200 mg PO Q4H PRN PRN Reason: Cough and congestion Heparin Sodium (Porcine) (Heparin) 5,700 units 70 units/kg (5700 units) IV ONCE ONE PRN Reason: Protocol Stop: 08/04/17 22:21 Last Admin: 08/04/17 23:22 Dose: 5,700 units eMAR Start Stop Document 08/04/17 23:22 AP (Rec: 08/04/17 23:22 AP [id number]) Intravenous Solution Start Date 08/04/17 Start Time 23:22 MAR aPTT Document 08/04/17 23:22 AP (Rec: 08/04/17 23:22 AP [id number]) aPTT aPTT (secs) 32.1 Hydralazine HCl (Apresoline) 25 mg PO BID [facility] Hydralazine HCl (Apresoline) 50 mg PO BID [facility] Last Admin: 08/06/17 10:43 Dose: 50 mg MAR Pulse and Blood Pressure Document 08/06/17 10:43 CD (Rec: 08/06/17 10:44 CD [id number]) Blood Pressure Blood Pressure (100/60-150/90) 170/71 Hydralazine HCl (Apresoline) 10 mg PO QID PRN PRN Reason: for sbp>170 Sodium Chloride (Sodium Chloride 0.9%) 500 mls @ 999 mls/hr IV .Q31M STA Stop: 08/04/17 19:10 Last Admin: 08/04/17 21:25 Dose: 999 mls/hr eMAR Start Stop Document 08/04/17 21:25 EQ (Rec: 08/04/17 21:25 EQ [facility]) Intravenous Solution Start Date 08/04/17 Start Time 21:25 Heparin Sodium/Sodium Chloride (Heparin 06583 Units/250ml 1/2 Normal Saline) 25 ,000 units in 250 mls @ 9.798 mls/hr IV .Q24H ADRIAN; 12 UNITS/KG/HR PRN Reason: Protocol Last Titration: 08/05/17 07:00 Dose: 0 units/kg/hr, 0 mls/hr Titration Intervention Document 08/05/17 07:00 AP (Rec: 08/05/17 07:05 AP [id number]) Titration Intake Titration Intake 150 Cumulative Intake 150 Cumulative Intake (Rx) 150 Waste Amount 0 Container Volume 100 Titration Dosing Titration Dose 0 IV Rate 0 Intake/Decrease Paused Cumulative Dose 68307 Sodium Chloride (Sodium Chloride 0.9%) 1,000 mls @ 50 mls/hr IV .Q20H ADRIAN Stop: 08/06/17 23:59 Last Admin: 08/05/17 08:42 Dose: 50 mls/hr eMAR Start Stop Document 08/05/17 08:42 MF (Rec: 08/05/17 08:42 MF [id number]) Intravenous Solution Start Date 08/05/17 Start Time 08:42 Iron Sucrose 100 mg/ Sodium (Chloride) 105 mls @ 210 mls/hr IVPB DAILY ADRIAN Stop: 08/15/17 10:29 Last Admin: 08/06/17 10:43 Dose: 210 mls/hr eMAR Start Stop Document 08/06/17 10:43 CD (Rec: 08/06/17 10:43 CD [id number]) Intravenous Solution Start Date 08/06/17 Start Time 10:43 Levalbuterol HCl (Xopenex) 0.63 mg IH [id number] PRN PRN Reason: Shortness of Breath Last Admin: 08/06/17 07:57 Dose: 0.63 mg Levofloxacin/Dextrose (Levaquin 750mg) 750 mg IVPB DAILY ADRIAN Levofloxacin/Dextrose (Levaquin 750mg) 750 mg IVPB Q48H [facility] Last Admin: 08/04/17 23:08 Dose: 750 mg eMAR Start Stop Document 08/04/17 23:08 AP (Rec: 08/04/17 23:09 AP [id number]) Intravenous Solution Start Date 08/04/17 Start Time 23:08 Levothyroxine Sodium (Synthroid) 75 mcg PO DAILY [facility] Last Admin: 08/06/17 11:05 Dose: Methylprednisolone (Solu-Medrol) 60 mg IVP Q8 [facility] Last Admin: 08/05/17 05:16 Dose: 60 mg IVP Administration Document 08/05/17 05:16 AP (Rec: 08/05/17 05:16 AP [id number]) Charges for Administration # of IVP Administrations 1 Methylprednisolone (Solu-Medrol) 30 mg IVP Q8 [facility] Last Admin: 08/06/17 05:07 Dose: 30 mg IVP Administration Document 08/06/17 05:07 TTC (Rec: 08/06/17 05:08 TTC [id number]) Charges for Administration # of IVP Administrations 1 Methylprednisolone (Solu-Medrol) 30 mg IVP Q12 [facility] Methylprednisolone (Solu-Medrol) 30 mg IVP Q12 [facility] Last Admin: 08/06/17 10:42 Dose: 30 mg Comments: per MECHANICAL ENERGY ENGINEER Nita, give dose now. IVP Administration Document 08/06/17 10:42 CD (Rec: 08/06/17 10:42 CD [id number]) Charges for Administration # of IVP Administrations 1 Nitroglycerin (Nitro-Bid 2% Oint) 1 ea TOP STAT STA Stop: 08/04/17 19:25 Last Admin: 08/04/17 20:25 Dose: 1 ea Non-Formulary Medication (Calcium Carb/Vitamin D3/Vit K1 [Citracal Soft Chew]) 1 tab PO DAILY [facility] Last Admin: 08/06/17 11:04 Dose: Oseltamivir Phosphate (Tamiflu Susp) 30 mg PO BID [facility] PRN Reason: Protocol Stop: 08/09/17 22:26 Last Admin: 08/06/17 11:17 Dose: 30 mg Pantoprazole Sodium (Protonix Ec Tab) 40 mg PO 0600 [facility] Last Admin: 08/06/17 05:09 Dose: 40 mg Sotalol HCl (Betapace) 80 mg PO BID [facility] Last Admin: 08/06/17 10:44 Dose: 80 mg MAR Pulse and Blood Pressure Document 08/06/17 10:44 CD (Rec: 08/06/17 10:44 CD [id number]) Blood Pressure Blood Pressure (100/60-150/90) 170/71 Tamsulosin HCl (Flomax) 0.4 mg PO BID [facility] Last Admin: 08/06/17 10:44 Dose: 0.4 mg - PA / MECHANICAL ENERGY ENGINEER / Resident Statement MD/DO has reviewed & agrees with the documentation as recorded. - Scribe Statement The provider has reviewed the documentation as recorded by the Scribe Genia Ramírez. All medical record entries made by the Scribe were at my direction and personally dictated by me. I have reviewed the chart and agree that the record accurately reflects my personal performance of the history, physical exam, medical decision making, and the department course for this patient. I have also personally directed, reviewed, and agree with the discharge instructions and disposition. Disposition/Present on Arrival - Present on Arrival Any Indicators Present on Arrival: No History of DVT/PE: No History of Uncontrolled Diabetes: No Urinary Catheter: No History of Decub. Ulcer: No History Surgical Site Infection Following: None - Disposition Have Diagnosis and Disposition been Completed?: Yes Diagnosis: Silent myocardial infarction, COPD exacerbation Disposition: HOSPITALIZED Disposition Time: 20:34 Patient Plan: Admission, Telemetry Condition: STABLE
[2017-08-04 18:25] LABS: BASO # 0.01 K/mm3 (0.0-2.0); BASO % 0.2 % (0.0-3.0); EOS # 0.2 (0.0-0.7); EOS % 3.5 % (1.5-5.0); GRAN # 3.43 (1.4-6.5); GRAN % 74.1 % (50.0-68.0); HEMOGLOBIN 9.1 g/dL (14.0-18.0); LYMPH # 0.6 (1.2-3.4); LYMPH % 12.7 % (22.0-35.0); MEAN CELL VOLUME 80.8 fl (80.0-105.0); MEAN CORPUSCULAR HEMOGLOBIN 23.6 pg (25.0-35.0); MEAN CORPUSCULAR HGB CONC 29.3 g/dl (31.0-37.0); MEAN PLATELET VOLUME 10.1 fl (7.0-11.0); MONO # 0.4 (0.1-0.6); MONO % 9.5 % (1.0-6.0); RBC 3.85 10^6/uL (3.5-6.1); RED CELL DISTRIBUTION WIDTH 16.3 % (11.5-14.5); WHITE BLOOD COUNT 4.6 10^3/ul (4.5-11.0)
[2017-08-04 18:26] LABS: VENOUS BLOOD GAS BASE EXCESS -1.7 mmol/L (0.0-2.0); VENOUS BLOOD GAS PO2 41 mm/Hg (30-55); VENOUS BLOOD PH 7.27 (7.32-7.43)
[2017-08-04 18:28] LABS: INR 1.39 (0.93-1.08); PROTHROMBIN TIME 15.9 SECONDS (9.4-12.5)
[2017-08-04] MEDS ORDERED: Albuterol 0.083% Inhal Sol (2.5 mg/3 mL) UD INH STA (18:40)
[2017-08-04] MEDS ORDERED: Sodium Chloride 0.9% 500 ML IV STA (18:40)
[2017-08-04] MEDS ORDERED: Albuterol-Ipratrop 3 mg / 0.5 (3 ml) UD IH STA (18:40)
[2017-08-04 18:45] LABS: ALB/GLOB RATIO 1.1 (1.1-1.8); ALBUMIN 2.9 g/dL (3.0-4.8); CALCIUM 9.1 mg/dL (8.4-10.5)
[2017-08-04 19:19] LABS: TROPONIN I 5.11 ng/mL
[2017-08-04] MEDS ORDERED: Nitroglycerin 2% Ointment Foilpak UD TOP STA (19:24)
[2017-08-04 21:54] LABS: TROPONIN I 5.66 ng/mL
[2017-08-04] MEDS ORDERED: guaiFENesin 200 mg/10 ml Syrup UD PO PRN (22:24)
[2017-08-04] MEDS ORDERED: Heparin25000 units/250ml 1/2NS 25,000 UNITS/250 ML BAG IV SCH (22:30)
[2017-08-04] MEDS ORDERED: levoFLOXacin 750 mg in D5W 150 ML BAG IVPB SCH (22:45)
[2017-08-04] MEDS: Levalbuterol 0.63 MG/3 ML Inhal Soln UD IH PRN (23:03)
[2017-08-04] MEDS: Oseltamivir 6 MG/ML PO SCH (23:06)
--- NOTE | 2017-08-04 23:13 | CP.PCM.HP ---
<Melo Horne - Last Filed: 08/04/17 23:36> History of Present Illness - History of Present Illness History of Present Illness: This patient is an 81 year old male with a PMHx of Renal Failure, COPD, Diabetes (On no meds), CAD w/ CABG, HLD, and Prostate CA (Remission) who presented with complaints of upper respiratory symptoms including chest congestion, productive cough w/ yellow sputum, generalized weakness, wheezing, and SOB x 3 days. Patient has only tried Aspirin to relieve his symptoms without any success. He denies any fevers, chills, chest pain, palpitations, nausea, vomiting, diarrhea, constipation, or any urinary symptoms. He does admit to sick contacts. Patient found to have elevated Troponin of 5.1 in the ED and was given NitroPatch. ROS POSITIVES: chest congestion, productive cough w/ yellow sputum, generalized weakness, wheezing, SOB, sick contacts NEGATIVES: fevers, chills, chest pain, palpitations, nausea, vomiting, diarrhea, constipation, urinary symptoms. PMHx: Renal Failure, CHF? COPD, Diabetes (On no meds), CAD w/ CABG, HLD, and Prostate CA (Remission) PSHx: CABG( July 2001, Hospital in [place]) Allergies: Penicillin SocialHx: 1 PPD for 20 years. Quit about 35-40 years ago. Denies Alcohol or illicit drug use FamHx: Denies Meds: Reviewed PMD: Dr. Nguyen Bed Laborer: Dr. Fuentes Present on Admission - Present on Admission Any Indicators Present on Admission: No Review of Systems - Review of Systems Review of Systems: As per HPI Past Patient History - Infectious Disease Hx of Infectious Diseases: None - Past Social History Smoking Status: Former Smoker - CARDIAC Hx Cardiac Disorders: Yes Hx Congestive Heart Failure: Yes Hx Hypertension: Yes Other/Comment: bypass x5 in 2001 - PULMONARY Hx Respiratory Disorders: Yes Hx Chronic Obstructive Pulmonary Disease (COPD): Yes Other/Comment: pulmonary HTN - NEUROLOGICAL Hx Neurological Disorder: No - HEENT Hx HEENT Problems: Yes ([place]) Hx Deafness: Yes ([place]) Other/Comment: b/l hearingaids - RENAL Hx Chronic Kidney Disease: No - ENDOCRINE/METABOLIC Hx Endocrine Disorders: Yes Hx Diabetes Mellitus Type 2: Yes (boarderline, no meds) Hx Hypothyroidism: Yes - HEMATOLOGICAL/ONCOLOGICAL Hx Cancer: Yes (prostate) - INTEGUMENTARY Hx Dermatological Problems: Yes Hx Psoriasis: Yes - MUSCULOSKELETAL/RHEUMATOLOGICAL Hx Falls: No - GASTROINTESTINAL Hx Gastrointestinal Disorders: Yes Hx Gastroesophageal Reflux: Yes Other/Comment: POOR APPETITE, DIARRHEA - GENITOURINARY/GYNECOLOGICAL Hx Genitourinary Disorders: Yes Hx Prostate Problems: Yes (PROSTATE CA) - PSYCHIATRIC Hx Psychophysiologic Disorder: No Hx Depression: No Hx Emotional Abuse: No Hx Psychosis: No - SURGICAL HISTORY Hx Joint Replacement: Yes (left knee) - ANESTHESIA Hx Anesthesia: Yes Hx Anesthesia Reactions: No Hx Malignant Hyperthermia: No Meds Allergies/Adverse Reactions: Allergies Allergy/AdvReac Type Severity Reaction Status Date / Time Penicillins Allergy SWELLING Verified 01/23/17 19:05 Physical Exam - Constitutional Appears: Well, Non-toxic, No Acute Distress - Head Exam Head Exam: ATRAUMATIC, NORMAL INSPECTION, NORMOCEPHALIC - Eye Exam Eye Exam: EOMI, Normal appearance. absent: Scleral icterus - ENT Exam ENT Exam: Mucous Membranes Moist - Neck Exam Neck exam: Negative for: Lymphadenopathy, Thyromegaly - Respiratory Exam Respiratory Exam: Wheezes (Diffuse B/L ), NORMAL BREATHING PATTERN. absent: Clear to Auscultation Bilateral, Rales, Rhonchi, Stridor - Cardiovascular Exam Cardiovascular Exam: RRR, +S1, +S2. absent: JVD Additional comments: No Carotid Bruit - GI/Abdominal Exam GI & Abdominal Exam: Normal Bowel Sounds, Soft. absent: Tenderness - Extremities Exam Extremities exam: Positive for: normal capillary refill. Negative for: pedal edema - Neurological Exam Neurological exam: Alert, CN II-XII Intact, Oriented x3 Additional comments: No motor and sensory deficit - Psychiatric Exam Psychiatric exam: Normal Affect, Normal Mood - Skin Skin Exam: Dry, Intact, Normal Color, Warm Results - Vital Signs Recent Vital Signs: Last Vital Signs Temp 97.9 F 08/04/17 16:28 Pulse 80 08/04/17 22:11 Resp 18 08/04/17 22:11 BP 160/82 H 08/04/17 22:11 Pulse Ox 97 08/04/17 20:14 - Labs Result Diagrams: 08/04/17 17:50 08/04/17 17:50 Labs: Laboratory Results - last 24 hr 08/04/17 08/04/17 21:00 22:00 APTT 32.1 Lactate Dehydrogenase 444 Total Creatine Kinase 123 Troponin I 5.66 H* Assessment & Plan - Assessment and Plan (Free Text) Assessment: 81 year old male with PMHx of Renal Failure, COPD, Diabetes (On no meds), CAD w / CABG, HLD, and Prostate CA (Remission) presents complaining of upper respiratory symptoms including congestion, wheezing, and productive cough. Patient found to have elevated troponins. Plan: NSTEMI, Hx of CAD EKG: Sinus Rhythym with Occasional PVC's Trop 1 - 5.11, Trop 2-5.66. Cardiology Consulted. ER Attending discussed with Dr. May Called Dr. May regarding 2nd Troponin level. F/U ASA and NitroPaste Given in the ED Cardiology Consult (Dr. May) Serial EKG's Serial Trops Plavix 75 Daily ASA 81 Daily Heparin Bolus/Drip Home Sotalol SOB w/ productive Cough DDx: COPD Exacerbation, URI, NSTEMI Duoneb given in ED PRN Xopenex Levaquin (Renally Dosed) Solumedrol 60 Q8H Tamiflu BID PRN Robitussin Hx of CHF Home Lasix 20 Daily Last ECHO on file from 2014 shows 35% EF Patient is unaware of any CHF history Hx of HTN Home Sotalol Hydralazine 25 BID Hx of HLD Home Fenofibrate 145 PO Daily Home Lipitor 20 HS CKD Monitor Cr Nephro Consult (Dr. Don) Proph Protonix Heparin NPO Patient seen and discussed with Attending (Dr. Capps) Melo Horne, PGY1 <Hardeep Capps - Last Filed: 08/05/17 03:04> Results - Vital Signs Recent Vital Signs: Last Vital Signs Temp 98 F 08/05/17 00:01 Pulse 66 08/05/17 02:00 Resp 20 08/05/17 00:01 BP 148/78 08/05/17 01:26 Pulse Ox 98 08/05/17 00:01 - Labs Result Diagrams: 08/04/17 17:50 08/04/17 17:50 Labs: Laboratory Results - last 24 hr 08/04/17 08/04/17 21:00 22:00 APTT 32.1 Lactate Dehydrogenase 444 Total Creatine Kinase 123 Troponin I 5.66 H* Attending/Attestation - Attestation I have personally seen and examined this patient.: Yes I have fully participated in the care of the patient.: Yes I have reviewed all pertinent clinical information: Yes Notes (Text): 08/05/17 03:03 Patient was seen when he was in the ER in bed # 16. Agree with history, physical examination, assessment and plan. My impression would be as follows: Flu like syndrome. Exacerbation of COPD. Elevated troponin. HTN. CHF. DM. CAD. Hx CABG. Hx atrial fibrillation. Bilateral deafness. History of prostate cancer. Depression. Hypothyroidism. HLD. Anemia. Arthritis. Renal insufficiency. Elevated BNP. Thrombocytopenia. Allergy to penicillin. Former smoker.
[2017-08-05 03:32] LABS: ALBUMIN 2.8 g/dL (3.0-4.8); CALCIUM 8.9 mg/dL (8.4-10.5); MAGNESIUM 1.8 mg/dL (1.7-2.2)
[2017-08-05 04:17] LABS: TROPONIN I 4.74 ng/mL
[2017-08-05] MEDS: Pantoprazole 40 mg EC Tab PO SCH (05:16)
[2017-08-05] MEDS: Levalbuterol 0.63 MG/3 ML Inhal Soln UD IH PRN ×2 (06:12→21:28)
[2017-08-05 06:20] LABS: HEMOGLOBIN 8.9 g/dL (14.0-18.0); MEAN CELL VOLUME 80.5 fl (80.0-105.0); MEAN CORPUSCULAR HEMOGLOBIN 24.5 pg (25.0-35.0); MEAN CORPUSCULAR HGB CONC 30.4 g/dl (31.0-37.0); MEAN PLATELET VOLUME 10.3 fl (7.0-11.0); RBC 3.64 10^6/uL (3.5-6.1); RED CELL DISTRIBUTION WIDTH 16.2 % (11.5-14.5); WHITE BLOOD COUNT 3.6 10^3/ul (4.5-11.0)
[2017-08-05 06:29] LABS: INR 1.42 (0.93-1.08); PARTIAL THROMBOPLASTIN TIME 96.1 Seconds (25.1-36.5); PROTHROMBIN TIME 16.5 SECONDS (9.4-12.5)
[2017-08-05] MEDS ORDERED: Sodium Chloride 0.9% 1,000 ML IV SCH (08:30)
--- NOTE | 2017-08-05 09:05 | RAD ---
HISTORY: cough, congestion COMPARISON: 07/06/2017 FINDINGS: LUNGS: No active pulmonary disease. PLEURA: No significant pleural effusion identified, no pneumothorax apparent. CARDIOVASCULAR: There is moderate to severe cardiomegaly with mild vascular congestion OSSEOUS STRUCTURES: Sternal wires VISUALIZED UPPER ABDOMEN: Normal. OTHER FINDINGS: None. IMPRESSION: There is moderate to severe cardiomegaly with mild vascular congestion
[2017-08-05] MEDS ORDERED: [UNRECOGNIZED DRUG - MIXTURE] PO SCH (10:00)
--- NOTE | 2017-08-05 10:07 | CARD ---
APPROVED REPORT EKG Measurement Heart [id number] VT 140P35 [id number] <Conclusion> Sinus rhythm with premature supraventricular complex Possible Inferior infarct, oldf No change
[2017-08-05] MEDS ORDERED: HEPARIN SODIUM/NS 2,000 ML IV ONE (10:16)
[2017-08-05] MEDS ORDERED: Phenylephrine 10 mg/ml Inj ONE (10:16)
[2017-08-05] MEDS ORDERED: Iohexol 350mgl/ml 50 ML ONE (10:16)
[2017-08-05] MEDS ORDERED: Lidocaine 2% Inj (20ml) ONE (10:16)
[2017-08-05] MEDS ORDERED: Iodixanol 320 MG/ML 200 ML BOTTLE IV ONE (10:16)
[2017-08-05] MEDS: CALCIUM CARB PO SCH (10:45)
[2017-08-05] MEDS: VIT K1 PO SCH (10:45)
[2017-08-05] MEDS: Levothyroxine 75 MCG TAB PO SCH (10:45)
[2017-08-05] MEDS: VITAMIN D3 PO SCH (10:45)
[2017-08-05] MEDS ORDERED: Midazolam 2 MG/2 ML VIAL ONE (10:52)
[2017-08-05] MEDS: Acetylcysteine 20% Inhal Soln (4ml) PO SCH ×2 (13:15→19:04)
--- NOTE | 2017-08-05 14:13 | CP.PCM.PN ---
<Barry Rivera - Last Filed: 08/05/17 14:09> Subjective - Date & Time of Evaluation Date of Evaluation: 08/05/17 Time of Evaluation: 07:10 - Subjective Subjective: Medicine progress note for Dr. Snyder Hospitalist Service Patient seen and examined at bedside. Patient reports resolution of his flu- like symptoms this morning. Patient denies fever, chills, chest pain, dyspnea, abdominal pain, dysuria. Objective - Vital Signs/Intake and Output Vital Signs (last 24 hours): Temp Pulse Resp BP Pulse Ox 98.5 F 94 H 19 159/74 H 99 08/05/17 13:54 08/05/17 13:54 08/05/17 13:54 08/05/17 13:54 08/05/17 06:00 Intake and Output: 08/05/17 08/05/17 06:59 18:59 Intake Total 228 150 Balance 228 150 - Medications Medications: Current Medications Acetylcysteine (Acetylcysteine 20%) 6 ml PO BID [facility] Stop: 08/06/17 23:59 Aspirin (Ecotrin) 81 mg PO DAILY [facility] Last Admin: 08/05/17 08:42 Dose: 81 mg Atorvastatin Calcium (Lipitor) 20 mg PO DAILY [facility] Buspirone HCl (Buspar) 5 mg PO DAILY [facility] PRN Reason: Protocol Clopidogrel Bisulfate (Plavix) 75 mg PO DAILY [facility] Fenofibrate (Tricor) 145 mg PO DAILY [facility] Furosemide (Lasix) 20 mg PO DAILY [facility] Guaifenesin (Robitussin) 200 mg PO Q4H PRN PRN Reason: Cough and congestion Hydralazine HCl (Apresoline) 50 mg PO BID [facility] Hydralazine HCl (Apresoline) 10 mg PO QID PRN PRN Reason: for sbp>170 Sodium Chloride (Sodium Chloride 0.9%) 1,000 mls @ 50 mls/hr IV .Q20H [facility] Stop: 08/06/17 23:59 Last Admin: 08/05/17 08:42 Dose: 50 mls/hr Levalbuterol HCl (Xopenex) 0.63 mg IH [id number] PRN PRN Reason: Shortness of Breath Last Admin: 08/05/17 06:12 Dose: 0.63 mg Levofloxacin/Dextrose (Levaquin 750mg) 750 mg IVPB Q48H [facility] Last Admin: 02/18/18 23:08 Dose: 750 mg Levothyroxine Sodium (Synthroid) 75 mcg PO DAILY [facility] Methylprednisolone (Solu-Medrol) 30 mg IVP Q8 [facility] Non-Formulary Medication (Calcium Carb/Vitamin D3/Vit K1 [Citracal Soft Chew]) 1 tab PO DAILY [facility] Oseltamivir Phosphate (Tamiflu Susp) 30 mg PO BID [facility] PRN Reason: Protocol Stop: 08/09/17 22:26 Last Admin: 08/04/17 23:06 Dose: 30 mg Pantoprazole Sodium (Protonix Ec Tab) 40 mg PO 0600 [facility] Last Admin: 08/05/17 05:16 Dose: Not Given Sotalol HCl (Betapace) 80 mg PO BID [facility] Tamsulosin HCl (Flomax) 0.4 mg PO BID [facility] - Labs Labs: 08/05/17 05:40 08/05/17 03:10 PT 16.5 SECONDS (9.4-12.5) H 08/05/17 05:40 INR 1.42 (0.93-1.08) H 08/05/17 05:40 APTT 96.1 Seconds (25.1-36.5) H 08/05/17 05:40 - Constitutional Appears: No Acute Distress - Head Exam Head Exam: ATRAUMATIC, NORMOCEPHALIC - Eye Exam Eye Exam: EOMI, Normal appearance - ENT Exam ENT Exam: Mucous Membranes Moist Additional comments: 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 absent: Rales, Rhonchi, Wheezes Additional comments: Coarse breath sounds bilaterally - Cardiovascular Exam Cardiovascular Exam: REGULAR RHYTHM, +S1, +S2. absent: JVD - GI/Abdominal Exam GI & Abdominal Exam: Soft, Normal Bowel Sounds. absent: Distended, Guarding, Tenderness - Extremities Exam Extremities Exam: absent: Pedal Edema, Tenderness - Neurological Exam Neurological Exam: Alert, Awake, Oriented x3 - Psychiatric Exam Psychiatric exam: Normal Affect, Normal Mood - Skin Skin Exam: Dry, Warm Assessment and Plan - Assessment and Plan (Free Text) Assessment: This is an 81 year old male with PMHx of Chronic Kidney Disease, COPD, well- controlled Diabetes, CAD w/ CABG, HLD, and Prostate CA s/p radioactive seeds presenting complaining of upper respiratory symptoms including congestion, wheezing, and productive cough. Patient found to have elevated troponins without ST changes in EKG, indicating a Non-ST elevation myocardial infarction. Plan: 1. NSTEMI in the setting of Coronary Artery Disease with 5 vessel disease CABG Troponins significantly elevated on arrival but now downtrending Cardiology consulted, recommendations appreciated ASA, Plavix, Beta fabrizio Heparin drip Patient is for cardiac catheterization today. Follow up results--preliminary: no blockages seen 2. Upper Respiratory Infection in the setting of COPD history Xopenex prn Solumedrol 60 mg IV Q8 Tamiflu Robitussin prn Renally dosed Levaquin 3. History of Systolic CHF Echo from 2014 shows LVEF 35% 4. History of Hypertension Resume home Sotalol and Hydralazine 5. History of Hyperlipidemia Continue home fenofibrate and lipitor 6. Chronic Kidney Disease Nephrology consulted, recommendations appreciated 7. History of Diabetes Well controlled with hemoglobin A1c 5.5 8. Prophylaxis GI: Protonix DVT: Heparin drip Disposition: Will taper steroids. Preliminary report: no blockages. Follow up further cardiology recommendations. Patient seen and discussed with Dr. Snyder <Migdalia Snyder - Last Filed: 08/05/17 17:27> Objective - Vital Signs/Intake and Output Vital Signs (last 24 hours): Temp Pulse Resp BP Pulse Ox 98.5 F 94 H 19 159/74 H 99 08/05/17 13:54 08/05/17 13:54 08/05/17 13:54 08/05/17 13:54 08/05/17 06:00 Intake and Output: 08/05/17 08/05/17 06:59 18:59 Intake Total 228 150 Balance 228 150 - Medications Medications: Current Medications Acetylcysteine (Acetylcysteine 20%) 6 ml PO BID [facility] Stop: 08/06/17 23:59 Last Admin: 08/05/17 13:15 Dose: 6 ml Aspirin (Ecotrin) 81 mg PO DAILY [facility] Last Admin: 08/05/17 14:36 Dose: Not Given Atorvastatin Calcium (Lipitor) 20 mg PO DAILY [facility] Last Admin: 08/05/17 13:14 Dose: 20 mg Buspirone HCl (Buspar) 5 mg PO DAILY [facility] PRN Reason: Protocol Last Admin: 08/05/17 13:14 Dose: 5 mg Clopidogrel Bisulfate (Plavix) 75 mg PO DAILY [facility] Last Admin: 08/05/17 14:36 Dose: Not Given Fenofibrate (Tricor) 145 mg PO DAILY [facility] Furosemide (Lasix) 20 mg PO DAILY [facility] Last Admin: 08/05/17 13:14 Dose: 20 mg Guaifenesin (Robitussin) 200 mg PO Q4H PRN PRN Reason: Cough and congestion Hydralazine HCl (Apresoline) 50 mg PO BID [facility] Hydralazine HCl (Apresoline) 10 mg PO QID PRN PRN Reason: for sbp>170 Sodium Chloride (Sodium Chloride 0.9%) 1,000 mls @ 50 mls/hr IV .Q20H [facility] Stop: 08/06/17 23:59 Last Admin: 08/05/17 08:42 Dose: 50 mls/hr Levalbuterol HCl (Xopenex) 0.63 mg IH [id number] PRN PRN Reason: Shortness of Breath Last Admin: 08/05/17 06:12 Dose: 0.63 mg Levofloxacin/Dextrose (Levaquin 750mg) 750 mg IVPB Q48H [facility] Last Admin: 08/04/17 23:08 Dose: 750 mg Levothyroxine Sodium (Synthroid) 75 mcg PO DAILY [facility] Methylprednisolone (Solu-Medrol) 30 mg IVP Q8 [facility] Last Admin: 08/05/17 15:14 Dose: 30 mg Non-Formulary Medication (Calcium Carb/Vitamin D3/Vit K1 [Citracal Soft Chew]) 1 tab PO DAILY [facility] Oseltamivir Phosphate (Tamiflu Susp) 30 mg PO BID [facility] PRN Reason: Protocol Stop: 08/09/17 22:26 Last Admin: 08/05/17 14:36 Dose: Not Given Pantoprazole Sodium (Protonix Ec Tab) 40 mg PO 0600 [facility] Last Admin: 08/05/17 05:16 Dose: Not Given Sotalol HCl (Betapace) 80 mg PO BID [facility] Last Admin: 08/05/17 14:35 Dose: Not Given Tamsulosin HCl (Flomax) 0.4 mg PO BID [facility] Last Admin: 08/05/17 14:36 Dose: Not Given - Labs Labs: 08/05/17 05:40 08/05/17 03:10 PT 16.5 SECONDS (9.4-12.5) H 08/05/17 05:40 INR 1.42 (0.93-1.08) H 08/05/17 05:40 APTT 96.1 Seconds (25.1-36.5) H 08/05/17 05:40 Attending/Attestation - Attestation I have personally seen and examined this patient.: Yes I have fully participated in the care of the patient.: Yes I have reviewed all pertinent clinical information, including history, physical exam and plan: Yes Notes (Text): 08/05/17 17:19 attending note; Patient seen and examined with resident. Patient's sisters by the bedside. s/p cardiac cath. Patient is a 81 year old male with PMHx of Chronic Kidney Disease, COPD, Diabetes, history of CABG, hyperlipidemia and Prostate CA s/p radioactive seeds presenting complaining of upper respiratory symptoms including congestion, wheezing, and productive cough. Patient found to have elevated troponins without ST changes in EKG, indicating a Non-ST elevation myocardial infarction. status post cardiac cath. No stent placed. Continue medical management. Chronic kidney disease; monitor creatinine closely. Follow-up with nephrology. upper respiratory tract infection; monitor for fever trend. continue levofloxacin. history Of prostate cancer with seed placement. Patient follows up with urology DR. Fuentes. pancytopenia; monitor closely. Follow-up with Dr. Mcelroy as outpatient. upon discharge the patient will follow-up with PMD . 08/05/17 17:27
[2017-08-05] MEDS: Oseltamivir 6 MG/ML PO SCH ×2 (14:36→19:04)
[2017-08-05] MEDS: MethylPREDNISolone 40 mg Vial IVP SCH ×2 (15:14→21:08)
--- NOTE | 2017-08-05 17:03 | CARD ---
APPROVED REPORT Procedure(s) performed: Left Heart Catheterization MOORE Angiogram SVG Angiogram HISTORY The patient is a 81 year-old male with a history of : previous CHF, renal failure without dialysis, diabetes mellitus with no treatment , chronic lung disease, previous diagnostic cath, tobacco history() : The patient is a former smoker , hypertension , previous CABG (The CABG date was 06/17/2001), dyslipidemia , Admitted with unstable angina, NSTEMI and Troponin 5.7 and SOB, and CKD with base line Serum creatinine 1.6.. INDICATION The indication(s) include : unstable angina , non-STEMI . CASE TECHNIQUE The patient was brought urgently to the Cardiac Catheterization Laboratory in a fasting state and was prepped and draped in a sterile manner. The right femoral groin was infiltrated with 2% Lidocaine subcutaneous anesthesia. A 6 Fr x 11 cm Dasia sheath was inserted into the right femoral artery without difficulty. Coronary angiography was performed using coronary diagnostic catheters. The left coronary system was accessed and visualized with a Diagnostic ,5 Fr JL 4 catheter. The right coronary system was accessed and visualized with a Diagnostic ,5 Fr JR 4 catheter. The left ventricle was accessed and visualized with a 5 Fr Pigtail 145 (Angled) catheter. The left internal mammary artery was accessed and visualized with a 6 Fr JOYCELYN catheter. The saphenous vein graft was accessed and visualized with a 6 Fr JOYCELYN catheter. The saphenous vein graft was accessed and visualized with a 5 Fr JR 4 catheter. Left ventricular/Aortic Valve gradient assessed on pullback. Left ventriculogram was performed in YOUNG projection. Closure device was deployed with a 6 Fr / 7 Fr MynxGrip without any complications. The patient tolerated the procedure well and there were no complications associated with the procedure. Vessel Analysis The patient's coronary anatomy is right dominant. The left main coronary artery is a medium size vessel with diffuse calcification noted throughout this vessel and with significant stenosis. There is a 90% stenosis in the distal segment. The left main bifurcates to the left anterior descending and circumflex. The left anterior descending artery is a medium size vessel with diffuse calcification noted throughout this vessel and with significant stenosis. There is a 100% stenosis in the mid segment. The circumflex artery is a medium size vessel with diffuse calcification noted throughout this vessel and with significant stenosis. There is a 100% stenosis in the mid segment. The right coronary artery is a medium size vessel with diffuse calcification noted throughout this vessel and with significant stenosis. There is a 100% stenosis in the mid segment. The left internal mammary artery to the mid left anterior descending artery segment is patent . The saphenous vein graft to the second diagonal branch segment and OM1 sequential is patent . The saphenous vein graft to the distal right coronary artery is occluded . Left Ventricle The left ventricle is enlarged in size with moderately decreased contractility. Ischemic cardiomyopathy. The left ventricular ejection fraction is estimated to be 40-45%. The left ventricular end diastolic pressure is 20-25 mmHg. There was no gradient across the aortic valve upon pullback. Conclusion [place] Severe triple vessel Disease, including left Main Mild to moderately decreased LV Fx. EF-40-45% EDP_20-25 mmpof Hg Ischemic CMP Patent MOORE to LAD Patent SVG Sequential to D2 and OM1. Occluded SVG to RCA,Possible recent Occlusion. Total 80 cc Contrast used Recommendations Aggressive Medical TherapyCardiac Risk Reduction Program Weight Loss Reduction Program Baby ASa and Plavix for one month then Baby ASa alone. Monitor Renal Fx Closely continue beta fabrizio, Statin, FEI on Hold for renal insufficiency. IV hydration for 24 hours. CC; dr. Olivares
[2017-08-05 21:08] LABS: CREATININE,RANDOM URINE 24 mg/dL; TOTAL PROTEIN,RANDOM URINE 31 mg/L
--- NOTE | 2017-08-05 21:28 | CON ---
DATE: 08/05/2017 REASON FOR CONSULTATION AND FOLLOWUP: Acute coronary syndrome, unstable angina, non ST segment myocardial infarction, coronary artery disease, CABG in the past. BRIEF CLINICAL HISTORY: This is an 81-year-old male with past medical history significant for renal insufficiency, COPD, diabetes, coronary artery disease - status post CABG in 2001, being followed by Dr. Nevarez, history of prostate CA on remission, came in with upper respiratory tract infection, bringing phlegm, cough, shortness of breath and wheezing with cough. Mild chest discomfort and tightness on admission with cough as well as without coughing. But the troponins kept on increasing since admission. Initial troponin was 5.1, then 5.66, now the trend is down at 3.58. Patient complains of mild chest discomfort and shortness of breath. PAST MEDICAL HISTORY: Significant for coronary artery disease status post CABG in 2001, 5 vessels at [place], history of diabetes, hypertension, hyperlipidemia, coronary artery disease, renal insufficiency, COPD, heart failure, prostate CA - on remission. PAST SURGICAL HISTORY: Significant for coronary artery bypass in 2001 at [facility]. ALLERGY: PENICILLIN. CURRENT MEDICATION: Patient is taking at home hydralazine, BuSpar, Flomax 0.4 mg daily, sotalol, Betapace 80 mg twice a day, [place] 2.5 mg p.o. t.i.d., levothyroxine, Lasix, calcium, atorvastatin. SOCIAL HISTORY: Quit smoking 30 years ago. Denies any history of alcohol abuse. REVIEW OF SYSTEMS: As per HPI. PHYSICAL EXAMINATION: As follows. VITAL SIGNS: Temperature afebrile, heart rate 69, blood pressure 148/78. HEENT: PERRLA. Extraocular muscles intact. NECK: Supple. No carotid bruits or thyromegaly. CHEST: Clear to auscultation. HEART: S1 and S2 regular. ABDOMEN: Soft. EXTREMITIES: Clubbing and cyanosis negative. LABORATORY DATA: Blood workup as follows. WBC 3.6, hemoglobin 8.9, hematocrit 29.3, platelet count 110. Chemistry shows sodium 142, potassium 4.0, chloride 109, carbon dioxide 24, anion gap of 13. BUN 33, creatinine 1.6. Troponin 5.11, now is 1.66, repeat this morning is 4.74. Total protein 5.5, albumin 2.8, albumin-globulin ratio 1. EKG shows normal sinus with PACs. Q wave in II, III, aVF. IMPRESSION: Acute [id number] myocardial infarction, coronary artery disease, unstable angina, diabetes, hypertension, hyperlipidemia, history of coronary artery disease, coronary artery bypass graft - 5 vessels in 2001, renal insufficiency. RECOMMENDATIONS: We will give Plavix, aspirin loaded already. Continue hydration. Start 50 mL normal saline. We will discontinue heparin. Avoid nephrotoxin medication. Continue beta-fabrizio. Consider cardiac catheterization. Discussed with the patient, patient agreeable to proceed for cardiac cath. We will inform the patient's sister, on telephone number [phone]. Further recommendation after the cardiac catheterization. We will follow with you. Thank you, Dr. Myers, for providing us the opportunity in taking care of the patient, Eleno Chaudhry. Dat Avalos MD
--- NOTE | 2017-08-05 21:28 | CARD ---
APPROVED REPORT EKG Measurement Heart [id number] <Conclusion> Normal sinus rhythm Possible Inferior infarct, age undetermined Abnormal ECG
--- NOTE | 2017-08-05 21:35 | CARD ---
APPROVED REPORT EKG Measurement Heart [id number] <Conclusion> Normal sinus rhythm Prolonged QT Abnormal ECG
[2017-08-05] MEDS ORDERED: levoFLOXacin 750 mg in D5W 150 ML BAG IVPB SCH (22:30)
[2017-08-06 00:44] VITALS: RESP 18
--- NOTE | 2017-08-06 01:57 | CON ---
DATE: LOCATION: [facility]. NEPHROLOGY CONSULTATION HISTORY OF PRESENT ILLNESS: The patient is an 81-year-old male with past medical history of CKD stage 3B; COPD; hypertension; diabetes; CAD, status post CABG; hyperlipidemia; prostate CA, status post radiation therapy; presented with URI symptoms, found to have NSTEMI. Nephrology is being consulted for advanced CKD care. History taken mainly from the patient's sister who he lives with as the patient is very hard of hearing and not very good historian. Sister reports that the patient had been in his usual state of health up until a few days ago when he started having productive cough. Since then he has been having decreased appetite and decreased p.o. intake. Also with shortness of breath since the past 3 days. The patient otherwise at baseline does not ambulate much due to peripheral vascular disease with claudication symptoms; however, he is active in his activities of daily living, still drives his car. The patient today underwent cardiac cath in the setting of NSTEMI, found to have occluded SVG to RCA. No intervention was deemed, viable and the patient was recommended to continue with medical management. PAST MEDICAL HISTORY: As above. SOCIAL HISTORY: Previous smoker. FAMILY HISTORY: Brother with renal cancer. REVIEW OF SYSTEMS: CONSTITUTIONAL: Prior to current symptoms had been eating well. No loss of appetite. RESPIRATORY: As per HPI. CARDIOVASCULAR: Claudication. GI: No nausea, vomiting, diarrhea. : Denies difficulty urinating. MUSCULOSKELETAL: Does not use any pain meds other than Tylenol. NEUROLOGIC: Denies any numbness in his feet. PHYSICAL EXAMINATION: VITAL SIGNS: Earlier today, blood pressure 153/70, heart rate 79, respirations 18, temperature 98.1, O2 sat 99% on 2 L nasal cannula. GENERAL: No distress. Lying comfortably in bed. HEENT: Moist mucous membranes. Nonicteric. No cervical lymphadenopathy. RESPIRATORY: Lungs with minimal rales. No respiratory distress. CARDIOVASCULAR: Heart sounds S1, S2 normal. No murmurs. No gallops. No rubs. GI: Abdomen soft, nontender and nondistended. : No bladder distention. EXTREMITIES: No lower leg edema. SKIN: Warm. No cyanosis. PSYCHIATRICL: Normal mood. Normal affect. NEUROLOGIC: No obvious tremor. LABORATORY DATA: This morning CBC, WBC 3.6, hemoglobin 8.9, hematocrit 29.3, platelets 110. Chemistry panel: Sodium 142, potassium 4.3, chloride 109, bicarb 24, BUN 33, creatinine 1.6, calcium 8.9, phosphorus 3.8, albumin 2.8. Urine studies not available. CT abdomen and pelvis from 2017 showing thinning of renal cortices bilaterally. ASSESSMENT AND PLAN: 1. Chronic kidney disease stage 3B, previous UA indicates lack of proteinuria, most likely chronic kidney disease consistent with cardiorenal etiology/renovascular disease with numerous calcifications seen on imaging. Renal function is currently at baseline; however, the patient underwent cardiac cath and is at risk for acute kidney injury. -Agree with gentle intravenous fluids for a few hours post cath (especially in the setting of likely volume excess on chest x-ray with increased pulmonary vascular congestion); continue normal saline at 50 mL an hour. -Agree with acetylcysteine p.o. -We will check PTH and vitamin D 25-hydroxy levels for evidence of chronic kidney disease mineral bone disease. 2. Anemia. Hemoglobin below goal for advanced chronic kidney disease. We will check iron studies. 3. Hypoalbuminemia. Unclear if this is chronic. May be indicative of ongoing underlying disease process. Should review cancer screening if not done. -Start on protein supplements; 4. Hypertensive chronic kidney disease. Blood pressure currently elevated, although the patient is getting intravenous fluids. Currently on hydralazine 50 mg p.o. b.i.d. and sotalol 80 mg p.o. b.i.d; -Will re-assess after IVF stopped; Thank you for this referral. We will be following up. Ceferino Don MD [facility]
[2017-08-06] MEDS: MethylPREDNISolone 40 mg Vial IVP SCH (05:07)
[2017-08-06] MEDS: Pantoprazole 40 mg EC Tab PO SCH (05:09)
[2017-08-06 06:20] VITALS: O2SAT 100
[2017-08-06 07:11] LABS: HEMOGLOBIN 9.1 g/dL (14.0-18.0); MEAN CELL VOLUME 78.5 fl (80.0-105.0); MEAN CORPUSCULAR HEMOGLOBIN 23.6 pg (25.0-35.0); MEAN PLATELET VOLUME 10.1 fl (7.0-11.0); RBC 3.86 10^6/uL (3.5-6.1); RED CELL DISTRIBUTION WIDTH 16.1 % (11.5-14.5); WHITE BLOOD COUNT 6.5 10^3/ul (4.5-11.0)
[2017-08-06 07:18] LABS: ALBUMIN 2.9 g/dL (3.0-4.8); CALCIUM 8.7 mg/dL (8.4-10.5)
[2017-08-06] MEDS: Levalbuterol 0.63 MG/3 ML Inhal Soln UD IH PRN (07:57)
[2017-08-06] MEDS: Levothyroxine 75 MCG TAB PO SCH ×2 (08:19→11:05)
[2017-08-06] MEDS ORDERED: Sodium Chloride 0.9% 1,000 ML IV SCH (09:15)
[2017-08-06] MEDS ORDERED: MethylPREDNISolone 40 mg Vial IVP SCH ×2 (10:14→22:00)
[2017-08-06] MEDS: Acetylcysteine 20% Inhal Soln (4ml) PO SCH (10:45)
[2017-08-06] MEDS: CALCIUM CARB PO SCH (11:04)
[2017-08-06] MEDS: VIT K1 PO SCH (11:04)
[2017-08-06] MEDS: VITAMIN D3 PO SCH (11:04)
--- NOTE | 2017-08-06 11:12 | IP.NPCORE ---
Acute [place] Core Measure PNote - LVF prior to this hospilization,if known LVF prior to this hospilization: Election Fraction greater than 40% - Source Source: Cath Report - Date Date: 08/05/17 - Medications Aspirin Name/Dose/Frequency:: ecotrin Beta Caryn prescribed: Name/dose/frequency: betapace Contraindications to FEI/ARB:: Worsening renal insufficiency Lipid Lowering Agent: Name/Dose/Frequency: lipitor 20mg
[2017-08-06] MEDS: Oseltamivir 6 MG/ML PO SCH (11:17)
[2017-08-06 11:57] VITALS: BP 147/64; TEMP 97.7
--- NOTE | 2017-08-06 13:04 | CP.PCM.DIS ---
<Barry Rivera S - Last Filed: 08/06/17 14:15> Provider - Provider Date of Admission: 08/04/17 19:55 Attending physician: Migdalia Snyder MD Primary care physician: Riccardo Nguyen MD Consults: Cardiology: Dr. May Nephrology: Dr. Don Time Spent in preparation of Discharge (in minutes): 45 Diagnosis - Discharge Diagnosis (1) Non-ST elevated myocardial infarction Status: Acute Priority: High (2) Systolic CHF Status: Chronic Priority: High (3) Chronic kidney disease Status: Chronic Priority: High (4) History of hypertension Status: Chronic Priority: Medium (5) Chronic obstructive pulmonary disease (COPD) Status: Chronic Priority: Medium (6) History of diabetes mellitus Status: Chronic Priority: Medium Hospital Course - Lab Results Lab Results: Most Recent Lab Values WBC 6.5 10^3/ul (4.5-11.0) D 08/06/17 06:20 RBC 3.86 10^6/uL (3.5-6.1) 08/06/17 06:20 Hgb 9.1 g/dL (14.0-18.0) L 08/06/17 06:20 Hct 30.3 % (42.0-52.0) L 08/06/17 06:20 MCV 78.5 fl (80.0-105.0) L 08/06/17 06:20 MCH 23.6 pg (25.0-35.0) L 08/06/17 06:20 MCHC 30.0 g/dl (31.0-37.0) L 08/06/17 06:20 RDW 16.1 % (11.5-14.5) H 08/06/17 06:20 Plt Count 140 10^3/uL (120.0-450.0) 08/06/17 06:20 MPV 10.1 fl (7.0-11.0) 08/06/17 06:20 Gran % 74.1 % (50.0-68.0) H 08/04/17 17:50 Lymph % (Auto) 12.7 % (22.0-35.0) L 08/04/17 17:50 [place] % (Auto) 9.5 % (1.0-6.0) H 08/04/17 17:50 Eos % (Auto) 3.5 % (1.5-5.0) 08/04/17 17:50 Baso % (Auto) 0.2 % (0.0-3.0) 08/04/17 17:50 Gran # 3.43 (1.4-6.5) 08/04/17 17:50 Lymph # (Auto) 0.6 (1.2-3.4) L 08/04/17 17:50 [place] # (Auto) 0.4 (0.1-0.6) 08/04/17 17:50 Eos # (Auto) 0.2 (0.0-0.7) 08/04/17 17:50 Baso # (Auto) 0.01 K/mm3 (0.0-2.0) 08/04/17 17:50 PT 16.5 SECONDS (9.4-12.5) H 08/05/17 05:40 INR 1.42 (0.93-1.08) H 08/05/17 05:40 APTT 96.1 Seconds (25.1-36.5) H 08/05/17 05:40 pO2 41 mm/Hg (30-55) 08/04/17 17:50 VBG pH 7.27 (7.32-7.43) L 08/04/17 17:50 VBG pCO2 57.0 (40-60) 08/04/17 17:50 VBG HCO3 26.2 mmol/l (21-28) 08/04/17 17:50 VBG Total CO2 27.9 mmol.L (22-28) 08/04/17 17:50 VBG O2 Sat (Calc) 80.1 % (40-65) H 08/04/17 17:50 VBG Base Excess -1.7 mmol/L (0.0-2.0) L 08/04/17 17:50 VBG Potassium 4.1 mmol/L (3.6-5.2) 08/04/17 17:50 Sodium 139.0 mmol/L (132-148) 08/04/17 17:50 Chloride 109.0 mmol/L (98-107) H 08/04/17 17:50 Glucose 86 mg/dl (75-110) 08/04/17 17:50 Lactate 1.2 mmol/L (0.7-2.1) 08/04/17 17:50 FiO2 21.0 % 08/04/17 17:50 Sodium 144 mmol/L (132-148) 08/06/17 06:20 Potassium 4.2 mmol/L (3.6-5.0) 08/06/17 06:20 Chloride 108 mmol/L (98-107) H 08/06/17 06:20 Carbon Dioxide 26 mmol/L (21-33) 08/06/17 06:20 Anion Gap 13 (10-20) 08/06/17 06:20 BUN 45 mg/dL (7-21) H 08/06/17 06:20 Creatinine 1.7 mg/dl (0.8-1.5) H 08/06/17 06:20 Est GFR ( Amer) 47 08/06/17 06:20 Est GFR (Non-Af Amer) 39 08/06/17 06:20 Random Glucose 140 mg/dL (70-110) H 08/06/17 06:20 Hemoglobin A1c 5.5 % (4.2-6.5) 08/05/17 07:30 Calcium 8.7 mg/dL (8.4-10.5) 08/06/17 06:20 Phosphorus 3.8 mg/dL (2.5-4.5) 08/05/17 03:10 Magnesium 1.8 mg/dL (1.7-2.2) 08/05/17 03:10 Iron 30 ug/dL (45-180) L 08/06/17 06:20 TIBC 287 ug/dL (261-462) 08/06/17 06:20 % Saturation 11 % (20-55) L 08/06/17 06:20 Ferritin 114.0 ng/mL 08/06/17 06:20 Total Bilirubin 0.3 mg/dL (0.2-1.3) 08/06/17 06:20 AST 44 U/L (17-59) 08/06/17 06:20 ALT 28 U/L (7-56) 08/06/17 06:20 Alkaline Phosphatase 33 U/L (38-126) L 08/06/17 06:20 Lactate Dehydrogenase 444 U/L (333-699) 08/04/17 21:00 Total Creatine Kinase 123 U/L (35-230) 08/04/17 21:00 Troponin I 3.58 ng/mL H* D 08/05/17 09:00 NT-Pro-B Natriuret Pep 7210 pg/mL (0-450) H 08/04/17 17:50 Total Protein 5.7 g/dL (5.8-8.3) L 08/06/17 06:20 Albumin 2.9 g/dL (3.0-4.8) L 08/06/17 06:20 Globulin 2.8 gm/dL 08/06/17 06:20 Albumin/Globulin Ratio 1.0 (1.1-1.8) L 08/06/17 06:20 25-OH Vitamin D Total 40.1 NG/ML (30.0-100.0) 08/06/17 06:20 Venous Blood Potassium 4.1 mmol/L (3.6-5.2) 08/04/17 17:50 Ur Random Creatinine 24 mg/dL 08/05/17 20:20 U Random Total Protein 31 mg/L 08/05/17 20:20 Urine Microalbumin 150.3 mg/L (0.0-16.6) H 08/05/17 20:20 Influenza Typ A,B (EIA) Negative for flu a/b (NEGATIVE) 08/04/17 18:10 - Hospital Course Hospital Course: Initial History of Present Illness on 08/04/17: "This patient is an 81 year old male with a PMHx of Renal Failure, COPD, Diabetes (On no meds), CAD w/ CABG, HLD, and Prostate CA (Remission) who presented with complaints of upper respiratory symptoms including chest congestion, productive cough w/ yellow sputum, generalized weakness, wheezing, and SOB x 3 days. Patient has only tried Aspirin to relieve his symptoms without any success. He denies any fevers, chills, chest pain, palpitations, nausea, vomiting, diarrhea, constipation, or any urinary symptoms. He does admit to sick contacts." Hospital Course: Patient admitted for Non-ST segment elevation myocardial infarction. No acute ST segment changes seen on EKG. Troponins were markedly elevated on admission. Patient placed on heparin drip, and troponins were downtrending afterwards. Patient underwent cardiac catheterization on 08/05/17 which showed occluded SVG to RCA. Per cardiology, no further intervention necessary, and medical management was recommended. Patient is to be discharged on dual anti-platelet therapy for one month. After that, patient may discontinue the Plavix and remain on Aspirin 81 mg. Patient is to continue beta caryn, but FEI/ARB on hold due to renal insufficiency. Patient also came in with flu-like symptoms which have resolved. Patient evaluated by physical therapy who recommended TCU versus home physical therapy, but patient refused to stay in TCU for rehab. He instead requested home physical therapy. Case management team has referred the case to [facility] for home services. Patient also with a pending echocardiogram. Patient instructed for follow up with primary physician Dr. Nguyen and personal epic director Dr. Nevarez. This is a summary of the hospital course. For more information, refer to the medical records. 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 absent: Rales, Rhonchi, Wheezes - Cardiovascular Exam Cardiovascular Exam: REGULAR RHYTHM, +S1, +S2. absent: JVD - GI/Abdominal Exam GI & Abdominal Exam: Normal Bowel Sounds, Soft. absent: Distended, Guarding, Tenderness - Extremities Exam Extremities exam: pedal pulses present Additional comments: No pedal edema - Neurological Exam Neurological exam: Alert, Oriented x3 - Psychiatric Exam Psychiatric exam: Normal Affect, Normal Mood - Skin Skin Exam: Dry, Warm Additional comments: bruising on right side of the chest wall, chronic per patient. No hematoma at site of cardiac catheterization Discharge Plan - Discharge Medications Prescriptions: Azithromycin [Z-Manfred] 250 mg PO DAILY #6 tab Clopidogrel [Plavix] 75 mg PO DAILY #30 tab Prednisone [Deltasone] 20 mg PO DAILY #5 tablet - Follow Up Plan Condition: STABLE Disposition: HOME/ ROUTINE Instructions: Chronic Obstructive Pulmonary Disease (COPD), Including Emphysema , Coronary Angioplasty (DC), Exacerbation of COPD (DC), Myocardial Infarction ( DC), Heart Failure (DC) Additional Instructions: 1. Please resume all of your home medications including the Aspirin. 2. Please take Plavix 75 mg daily for 1 month only per epic director. 3. Please take the Z-Manfred as directed on the box. 4. Please take Prednisone 20 mg daily for five days. 5. Please follow up with Dr. Nguyen within 1 week of discharge. 6. Please follow up with Dr. Nevarez within 1 week of discharge as well. 7. Please follow up with Dr. Mcelroy within 1 week of discharge. 8. Your prescriptions for Plavix and the Z-manfred were sent to your pharmacy. 9. If there are any new or worsening symptoms, please go to the nearest emergency room. Referrals: Aaron Nevarez MD [Staff Provider] - Riccardo Nguyen MD [Primary Care Provider] - Giacomo Mcelroy MD [Medical Doctor] - Ceferino Don MD [Staff Provider] - Clinical Quality Measures - CQM - Heart Failure Ejection Fraction: 40 % or Greater Left Ventricular Function to be assessed after discharge: Yes FEI Inhibitor Prescribed: No Contraindication/Reason for not providing: chronic kidney disease Beta-Caryn Prescribed: None (Sotalol prescribed) Contraindication/Reason for not providing: Sotalol prescribed Angiotensin II Receptor Caryn Prescribed: No Contraindication/Reason for not providing: chronic kidney disease AnticoagulationTherapy for Atrial Fibrillation/Atrialflutter: No Contraindication/Reason for not providing: not indicated Aldosterone Antagonist Prescribed: No Contraindication/Reason for not providing: not indicated Hydralazine Nitrate Prescribed: No Contraindication/Reason for not providing: not indicated Implantable Cardioverter Defibrillator Therapy: No Contraindication/Reason for not providing: not indicated Cardiac Resynchronization Therapy Prescribed: No Contraindication/Reason for not providing: not indicated Will be discharged to: Home Follow Up Date (must be within 7 days from discharge): 08/13/17 Follow Up Time: 09:00 <Migdalia Snyder - Last Filed: 08/06/17 15:30> Provider - Provider Date of Admission: 08/04/17 19:55 Attending physician: Migdalia Snyder MD Primary care physician: Riccardo Nguyen MD Hospital Course - Lab Results Lab Results: Most Recent Lab Values WBC 6.5 10^3/ul (4.5-11.0) D 08/06/17 06:20 RBC 3.86 10^6/uL (3.5-6.1) 08/06/17 06:20 Hgb 9.1 g/dL (14.0-18.0) L 08/06/17 06:20 Hct 30.3 % (42.0-52.0) L 08/06/17 06:20 MCV 78.5 fl (80.0-105.0) L 08/06/17 06:20 MCH 23.6 pg (25.0-35.0) L 08/06/17 06:20 MCHC 30.0 g/dl (31.0-37.0) L 08/06/17 06:20 RDW 16.1 % (11.5-14.5) H 08/06/17 06:20 Plt Count 140 10^3/uL (120.0-450.0) 08/06/17 06:20 MPV 10.1 fl (7.0-11.0) 08/06/17 06:20 Gran % 74.1 % (50.0-68.0) H 08/04/17 17:50 Lymph % (Auto) 12.7 % (22.0-35.0) L 08/04/17 17:50 [place] % (Auto) 9.5 % (1.0-6.0) H 08/04/17 17:50 Eos % (Auto) 3.5 % (1.5-5.0) 08/04/17 17:50 Baso % (Auto) 0.2 % (0.0-3.0) 08/04/17 17:50 Gran # 3.43 (1.4-6.5) 08/04/17 17:50 Lymph # (Auto) 0.6 (1.2-3.4) L 08/04/17 17:50 [place] # (Auto) 0.4 (0.1-0.6) 08/04/17 17:50 Eos # (Auto) 0.2 (0.0-0.7) 08/04/17 17:50 Baso # (Auto) 0.01 K/mm3 (0.0-2.0) 08/04/17 17:50 PT 16.5 SECONDS (9.4-12.5) H 08/05/17 05:40 INR 1.42 (0.93-1.08) H 08/05/17 05:40 APTT 96.1 Seconds (25.1-36.5) H 08/05/17 05:40 pO2 41 mm/Hg (30-55) 08/04/17 17:50 VBG pH 7.27 (7.32-7.43) L 08/04/17 17:50 VBG pCO2 57.0 (40-60) 08/04/17 17:50 VBG HCO3 26.2 mmol/l (21-28) 08/04/17 17:50 VBG Total CO2 27.9 mmol.L (22-28) 08/04/17 17:50 VBG O2 Sat (Calc) 80.1 % (40-65) H 08/04/17 17:50 VBG Base Excess -1.7 mmol/L (0.0-2.0) L 08/04/17 17:50 VBG Potassium 4.1 mmol/L (3.6-5.2) 08/04/17 17:50 Sodium 139.0 mmol/L (132-148) 08/04/17 17:50 Chloride 109.0 mmol/L (98-107) H 08/04/17 17:50 Glucose 86 mg/dl (75-110) 08/04/17 17:50 Lactate 1.2 mmol/L (0.7-2.1) 08/04/17 17:50 FiO2 21.0 % 08/04/17 17:50 Sodium 144 mmol/L (132-148) 08/06/17 06:20 Potassium 4.2 mmol/L (3.6-5.0) 08/06/17 06:20 Chloride 108 mmol/L (98-107) H 08/06/17 06:20 Carbon Dioxide 26 mmol/L (21-33) 08/06/17 06:20 Anion Gap 13 (10-20) 08/06/17 06:20 BUN 45 mg/dL (7-21) H 08/06/17 06:20 Creatinine 1.7 mg/dl (0.8-1.5) H 08/06/17 06:20 Est GFR ( Amer) 47 08/06/17 06:20 Est GFR (Non-Af Amer) 39 08/06/17 06:20 Random Glucose 140 mg/dL (70-110) H 08/06/17 06:20 Hemoglobin A1c 5.5 % (4.2-6.5) 08/05/17 07:30 Calcium 8.7 mg/dL (8.4-10.5) 08/06/17 06:20 Phosphorus 3.8 mg/dL (2.5-4.5) 08/05/17 03:10 Magnesium 1.8 mg/dL (1.7-2.2) 08/05/17 03:10 Iron 30 ug/dL (45-180) L 08/06/17 06:20 TIBC 287 ug/dL (261-462) 08/06/17 06:20 % Saturation 11 % (20-55) L 08/06/17 06:20 Ferritin 114.0 ng/mL 08/06/17 06:20 Total Bilirubin 0.3 mg/dL (0.2-1.3) 08/06/17 06:20 AST 44 U/L (17-59) 08/06/17 06:20 ALT 28 U/L (7-56) 08/06/17 06:20 Alkaline Phosphatase 33 U/L (38-126) L 08/06/17 06:20 Lactate Dehydrogenase 444 U/L (333-699) 08/04/17 21:00 Total Creatine Kinase 123 U/L (35-230) 08/04/17 21:00 Troponin I 3.58 ng/mL H* D 08/05/17 09:00 NT-Pro-B Natriuret Pep 7210 pg/mL (0-450) H 08/04/17 17:50 Total Protein 5.7 g/dL (5.8-8.3) L 08/06/17 06:20 Albumin 2.9 g/dL (3.0-4.8) L 08/06/17 06:20 Globulin 2.8 gm/dL 08/06/17 06:20 Albumin/Globulin Ratio 1.0 (1.1-1.8) L 08/06/17 06:20 25-OH Vitamin D Total 40.1 NG/ML (30.0-100.0) 08/06/17 06:20 Venous Blood Potassium 4.1 mmol/L (3.6-5.2) 08/04/17 17:50 Ur Random Creatinine 24 mg/dL 08/05/17 20:20 U Random Total Protein 31 mg/L 08/05/17 20:20 Urine Microalbumin 150.3 mg/L (0.0-16.6) H 08/05/17 20:20 Influenza Typ A,B (EIA) Negative for flu a/b (NEGATIVE) 08/04/17 18:10 Attending/Attestation - Attestation I have personally seen and examined this patient.: Yes I have fully participated in the care of the patient.: Yes I have reviewed all pertinent clinical information, including history, physical exam and plan: Yes Notes (Text): 08/06/17 15:25 attending note; Patient seen and examined with resident. Patient's sisters by the bedside. Patient is a 81 year old male with PMHx of Chronic Kidney Disease, COPD, Diabetes, history of CABG, hyperlipidemia and Prostate CA s/p radioactive seeds presenting complaining of upper respiratory symptoms including congestion, wheezing, and productive cough. Patient found to have elevated troponins without ST changes in EKG, indicating a Non-ST elevation myocardial infarction. status post cardiac cath. No stent placed. Continue medical management. Chronic kidney disease; creatinine is stable at 1.7.nephrology evaluation appreciated. upper respiratory tract infection;patient is afebrile and nontoxic. Stable respiratory status. history Of prostate cancer with seed placement. Patient follows up with urology DR. Fuentes. pancytopenia; monitor closely. Follow-up with Dr. Mcelroy as outpatient. PT evaluation appreciated. Patient refused TCU. Home PT will be arranged by briefcase sewer. Patient's sister agreed with the above plan. upon discharge the patient will follow-up with PMD .
--- NOTE | 2017-08-06 13:59 | PN ---
DATE: 08/06/2017 REASON FOR CONSULTATION AND FOLLOWUP: Acute coronary syndrome, unstable angina, hhu-[id number] elevation myocardial infarction, status post CABG, status post cardiac catheterization and medical treatment. The patient denies any chest pain, shortness of breath, or any palpitation. OBJECTIVE: GENERAL: Not in apparent distress. Lying flat in the bed. VITAL SIGNS: Temperature afebrile, heart rate 64, and blood pressure 142/67. HEENT: PERRLA, extraocular muscles intact. NECK: Supple. No carotid bruit or thyromegaly. CHEST: Clear to auscultation. HEART: S1 and S2, regular. ABDOMEN: Soft. EXTREMITIES: Clubbing and cyanosis negative. LABORATORY DATA: Blood workup as follows: WBC 6.5, hemoglobin 9.8, hematocrit 30.3, and platelet count 140. Chemistry shows sodium 144, potassium 4.2, chloride 108, carbon dioxide 26, anion gap of 13. BUN 45, and creatinine 1.7. Total protein , albumin and globulin ratio 1. IMPRESSION: Chronic kidney disease, status post coronary artery bypass graft in 2001, status post bym-XK-qsvjffa elevation myocardial infarction, status post cardiac catheterization, occluded saphenous vein graft to right coronary artery. Medical treatment recommended. Mildly decreased left ventricular dysfunction. Ejection fraction 40% to 45%, EDP was in the range of 20. RECOMMENDATIONS: Avoid nephrotoxic medication, continue gentle hydration, continue Lasix p.o., continue Plavix for 4 weeks, continue aspirin, continue sotalol. The patient is on sotalol at home. Upon discharge, the patient will be followed up by Dr. Nevarez. Interim, continue aggressive medical treatment. Right groin appears okay. We will follow with you. We will continue gentle hydration to prevent contrast-induced nephropathy status post cardiac catheterization, chronic kidney disease, baseline creatinine 1.6 to 1.7. We will follow with you. Continue Mucomyst tonight. Avoid nephrotoxic medication. We will get echo to asses LV function. We will get lipid profile and TSH in the morning. Thank you Dr. Snyder for providing us the opportunity in taking care of patient, Eleno Chaudhry. Dat Avalos MD [facility] # [id number]
[2017-08-06 14:51] VITALS: PULSE 73
--- NOTE | 2017-08-06 23:03 | CP.PCM.PN ---
Objective - Vital Signs/Intake and Output Vital Signs (last 24 hours): Temp Pulse Resp BP Pulse Ox 97.7 F 73 18 147/64 100 08/06/17 11:57 08/06/17 14:00 08/06/17 11:57 08/06/17 11:57 08/06/17 06:00 Intake and Output: 08/06/17 08/07/17 18:59 06:59 Intake Total 340 Output Total 400 Balance -60 - Labs Labs: 08/06/17 06:20 08/06/17 06:20 PT 16.5 SECONDS (9.4-12.5) H 08/05/17 05:40 INR 1.42 (0.93-1.08) H 08/05/17 05:40 APTT 96.1 Seconds (25.1-36.5) H 08/05/17 05:40
--- NOTE | 2017-08-07 16:56 | CARD ---
APPROVED REPORT EXAM: Two-dimensional and M-mode echocardiogram with Doppler and color Doppler. 2D DIMENSIONS Left Atrium (2D)4.2 (1.6-4.0cm)IVSd1.2 (0.7-1.1cm) LVDd3.6 (3.9-5.9cm)PWd1.1 (0.7-1.1cm) LVDs2.7 (2.5-4.0cm)FS (%) 25.0 % LVEF (%)50.4 (>50%) M-Mode DIMENSIONS Aortic Root3.30 (2.2-3.7cm)Aortic Cusp Exc.1.20 (1.5-2.0cm) Aortic Valve AoV Peak Uvmhvgqh713.0cm/Lilli Peak GR.12mmHg Mitral Valve MV E Rglxcjhb125.0cm/sMV A Hzkzurac06.8cm/sE/A ratio1.4 TDI E/Lateral E'0.0E/Medial E'0.0 Tricuspid Valve TR Peak [id number]/sTR Peak Gr.48mmHg LEFT VENTRICLE The left ventricle is normal size. There is mild concentric left ventricular hypertrophy. Left ventricle systolic function is low normal.EF-50% There is normal LV segmental wall motion. Transmitral Doppler flow pattern is Grade II-pseudonormal filling dynamics. No left ventricle thrombus noted on this study. There is no ventricular septal defect visualized. There is no left ventricular aneurysm. There is no mass noted in the left ventricle. RIGHT VENTRICLE The right ventricle is normal size. There is normal right ventricular wall thickness. The right ventricular systolic function is normal. ATRIA The left atrium is mildly dilated. The right atrium size is normal. The interatrial septum is intact with no evidence for an atrial septal defect. AORTIC VALVE The aortic valve is calcified and displays decreased opening. There is mild to moderate aortic regurgitation. There is mild valvular aortic stenosis., VsAortic Sclerosis There is no aortic valvular vegetation. MITRAL VALVE The mitral valve is calcified but opens well. Mitral annular calcification is moderate to severe. Mitral regurgitation is mild to moderate. There is no mitral valve stenosis. There is no evidence of mitral valve prolapse. TRICUSPID VALVE The tricuspid valve leaflets are thickened or calcified, but open well. There is mild to moderate tricuspid regurgitation.RVSP-58 mmof h g. There is no tricuspid valve stenosis. There is no tricuspid valve prolapse or vegetation. PULMONIC VALVE The pulmonic valve is mildly thickened. There is trace pulmonic valvular regurgitation. GREAT VESSELS The aortic root is normal in size. The ascending aorta is normal in size. The pulmonary artery is normal. The IVC is normal in size and collapses >50% with inspiration. PERICARDIAL EFFUSION There is no pleural effusion. There is no pericardial effusion. <Conclusion> The left ventricle is normal size. There is mild concentric left ventricular hypertrophy. Left ventricle systolic function is low normal.EF-50% There is mild to moderate aortic regurgitation. Mitral regurgitation is mild to moderate. There is mild to moderate tricuspid regurgitation.RVSP-58 mmof h g.
== END 2017-08-06 15:00 | disposition home health service (06) | DRG 281 ==
LOC: ED 16:13 → ERH 19:55 → 2RNO 21:50
PROVIDERS: ADMIT Hospitalist; ATTEND Internal Medicine
PROC: 4A023N7 Measurement of Cardiac Sampling and Pressure, Left Heart, Percutaneous Approach (ICD-10-PCS; principal; 2017-08-05)
PROC: B2111ZZ Fluoroscopy of Multiple Coronary Arteries using Low Osmolar Contrast (ICD-10-PCS; 2017-08-05)
PROC: B2151ZZ Fluoroscopy of Left Heart using Low Osmolar Contrast (ICD-10-PCS; 2017-08-05)
DX: I21.4 Non-ST elevation (NSTEMI) myocardial infarction (principal); J44.1 Chronic obstructive pulmonary disease with (acute) exacerbation; D61.818 Other pancytopenia; E11.22 Type 2 diabetes mellitus with diabetic chronic kidney disease; E88.09 Other disorders of plasma-protein metabolism, not elsewhere classified; I25.810 Atherosclerosis of coronary artery bypass graft(s) without angina pectoris; E11.51 Type 2 diabetes mellitus with diabetic peripheral angiopathy without gangrene; I50.20 Unspecified systolic (congestive) heart failure; I13.0 Hypertensive heart and chronic kidney disease with heart failure and stage 1 through stage 4 chronic kidney disease, or unspecified chronic kidney disease; I25.110 Atherosclerotic heart disease of native coronary artery with unstable angina pectoris; I27.20 Pulmonary hypertension, unspecified; J06.9 Acute upper respiratory infection, unspecified; K21.9 Gastro-esophageal reflux disease without esophagitis; N18.9 Chronic kidney disease, unspecified; Z79.82 Long term (current) use of aspirin; I25.5 Ischemic cardiomyopathy; I25.2 Old myocardial infarction; E03.9 Hypothyroidism, unspecified; E78.5 Hyperlipidemia, unspecified; H91.90 Unspecified hearing loss, unspecified ear; Z80.51 Family history of malignant neoplasm of kidney; Z85.46 Personal history of malignant neoplasm of prostate; Z87.891 Personal history of nicotine dependence; Z88.0 Allergy status to penicillin; Z92.3 Personal history of irradiation; Z96.652 Presence of left artificial knee joint

== ENCOUNTER 2018-02-12 11:18 | Emergency (ER) | payer MEDICARE ==
[2018-02-12 12:11] VITALS: RESP 18; TEMP 97.8; BMI 26.1
[2018-02-12 13:02] LABS: VENOUS BLOOD GAS BASE EXCESS 1.2 mmol/L (0.0-2.0); VENOUS BLOOD GAS PO2 42 mm/Hg (30-55); VENOUS BLOOD PH 7.35 (7.32-7.43)
[2018-02-12 13:09] LABS: BASO # 0.02 K/mm3 (0.0-2.0); BASO % 0.4 % (0.0-3.0); EOS # 0.1 (0.0-0.7); GRAN # 4.27 (1.4-6.5); GRAN % 77.9 % (50.0-68.0); HEMOGLOBIN 10.3 g/dL (14.0-18.0); LYMPH # 0.9 (1.2-3.4); LYMPH % 16.1 % (22.0-35.0); MEAN CELL VOLUME 81.4 fl (80.0-105.0); MEAN CORPUSCULAR HEMOGLOBIN 24.8 pg (25.0-35.0); MEAN CORPUSCULAR HGB CONC 30.5 g/dl (31.0-37.0); MEAN PLATELET VOLUME 10.2 fl (7.0-11.0); MONO # 0.2 (0.1-0.6); MONO % 3.6 % (1.0-6.0); RBC 4.15 10^6/uL (3.5-6.1); RED CELL DISTRIBUTION WIDTH 16.5 % (11.5-14.5); WHITE BLOOD COUNT 5.5 10^3/ul (4.5-11.0)
[2018-02-12 13:11] LABS: ALB/GLOB RATIO 1.1 (1.1-1.8); ALBUMIN 3.4 g/dL (3.0-4.8)
--- NOTE | 2018-02-12 13:31 | ED PDOC ---
Arrival/HPI - General Chief Complaint: Abnormal Labs Time Seen by Provider: 02/12/18 11:59 Historian: Patient - History of Present Illness Narrative History of Present Illness (Text): 02/12/18 13:31 A 82 year old male, whose past medical history includes COPD and CHF, who is accompanied by his sister, presents to the emergency department for evaluation of potassium levels. 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 Patient denies any symptomatic complaints at this time. [employer]: Dr. Ceferino Don Past Medical History - Provider Review Nursing Documentation Reviewed: Yes - Infectious Disease Hx of Infectious Diseases: None - Cardiac Hx Cardiac Disorders: Yes Hx Congestive Heart Failure: Yes Hx Hypertension: Yes Other/Comment: bypass x5 in 2001 - Pulmonary Hx Respiratory Disorders: Yes Hx Chronic Obstructive Pulmonary Disease (COPD): Yes Other/Comment: pulmonary HTN - Neurological Hx Neurological Disorder: No - HEENT Hx HEENT Disorder: Yes ([place]) Hx Deafness: Yes ([place]) Other/Comment: b/l hearingaids - Renal Hx Renal Disorder: Yes Hx Renal Failure: Yes - Endocrine/Metabolic Hx Endocrine Disorders: Yes Hx Diabetes Mellitus Type 2: Yes (boarderline, no meds) Hx Hypothyroidism: Yes - Hematological/Oncological Hx Cancer: Yes (prostate) - Integumentary Hx Dermatological Disorder: Yes Hx Psoriasis: Yes - Musculoskeletal/Rheumatological Hx Arthritis: Yes - Gastrointestinal Hx Gastrointestinal Disorders: Yes Hx Gastroesophageal Reflux: Yes Other/Comment: [employer], DIARRHEA - Genitourinary/Gynecological Hx Genitourinary Disorders: Yes Hx Prostate Problems: Yes (PROSTATE CA) - Psychiatric Hx Psychophysiologic Disorder: No Hx Depression: No Hx Emotional Abuse: No Hx Psychosis: No Hx Substance Use: No - Surgical History Hx Cardiac Catheterization: Yes Hx Joint Replacement: Yes (left knee) - Anesthesia Hx Anesthesia: Yes Hx Anesthesia Reactions: No Hx Malignant Hyperthermia: No - Suicidal Assessment Feels Threatened In Home Enviroment: No Family/Social History - Physician Review Nursing Documentation Reviewed: Yes Family/Social History: No Known Family HX Smoking Status: Former Smoker Hx Alcohol Use: No Hx Substance Use: No Hx Substance Use Treatment: No Allergies/Home Meds Allergies/Adverse Reactions: Allergies Penicillins Allergy (Verified 02/12/18 12:09) SWELLING Home Medications: Home Meds Medication Instructions Recorded Confirmed Atorvastatin Calcium [Lipitor] 20 mg PO DAILY 05/05/14 02/15/17 Fenofibrate [Tricor] 145 mg PO DAILY 05/05/14 02/15/17 Sotalol HCl [Betapace] 80 mg PO BID 05/05/14 02/15/17 Tamsulosin [Flomax] 1 cap PO BID 05/05/14 02/15/17 Aspirin [Ecotrin] 81 mg PO MWF 07/29/15 02/15/17 Calcim/ Manesium 1 tab PO DAILY 07/29/15 01/23/17 Furosemide [Lasix] 20 mg PO DAILY 07/29/15 02/15/17 Ginko Biloba 1 tab PO DAILY 07/29/15 02/15/17 Levothyroxine [Synthroid] 0.075 mg PO DAILY 07/29/15 02/15/17 Multivit-Min/FA/Lycopen/Lutein 1 each PO DAILY 07/29/15 02/15/17 [Centrum Silver Tablet] busPIRone [Buspar] 5 mg PO DAILY 07/29/15 02/15/17 hydrALAZINE [Apresoline] 25 mg PO BID 07/29/15 02/15/17 Riociguat [Adempas] 2.5 mg PO TID 12/18/16 02/15/17 Calcium Carb/Vitamin D3/Vit K1 1 tab PO DAILY 01/23/17 01/23/17 [Citracal Soft Chew] Fluticasone/Vilanterol [Breo 1 pow IH 01/23/17 Ellipta 100-25 Mcg INH] Review of Systems - Review of Systems Constitutional: Normal. absent: Fevers, Night Sweats Eyes: Normal ENT: Normal Respiratory: Normal. absent: SOB, Cough Cardiovascular: Normal. absent: Chest Pain, Palpitations Gastrointestinal: Normal. absent: Abdominal Pain, Diarrhea, Nausea, Vomiting Genitourinary Male: Normal Musculoskeletal: Normal Skin: Normal Neurological: Normal. absent: Headache, Dizziness Endocrine: Normal Hemo/Lymphatic: Normal Psychiatric: Normal Physical Exam Vital Signs Reviewed: Yes Vital Signs Temp Pulse Resp BP Pulse Ox 02/12/18 14:12 97.8 F 60 18 179/79 H 99 02/12/18 12:10 97.8 F 71 18 141/74 97 Temperature: Afebrile Blood Pressure: Normal Pulse: Regular Respiratory Rate: Normal Appearance: Positive for: Well-Appearing, Non-Toxic, Comfortable Pain Distress: None Mental Status: Positive for: Alert and Oriented X 3 Finger Stick Blood Glucose: 122 - Systems Exam Head: Present: Atraumatic, Normocephalic Pupils: Present: PERRL Extroacular Muscles: Present: EOMI Conjunctiva: Present: Normal Mouth: Present: Moist Mucous Membranes Neck: Present: Normal Range of Motion Respiratory/Chest: Present: Clear to Auscultation, Good Air Exchange. No: Respiratory Distress, Accessory Muscle Use Cardiovascular: Present: Regular Rate and Rhythm, Normal S1, S2. No: Murmurs Abdomen: No: Tenderness, Distention, Peritoneal Signs Back: Present: Normal Inspection Upper Extremity: Present: Normal Inspection. No: Cyanosis, Edema Lower Extremity: Present: Normal Inspection. No: Edema Neurological: Present: GCS=15, CN II-XII Intact, Speech Normal Skin: Present: Warm, Dry, Normal Color. No: Rashes Psychiatric: Present: Alert, Oriented x 3, Normal Insight, Normal Concentration Medical Decision Making ED Course and Treatment: 02/12/18 13:32 Impression: 82 year old male with high potassium level. No acute findings on physical exam. Pt is asymptompatic Plan: -- EKG -- Labs -- Venous Blood Gas -- Reassess and disposition Progress Notes: 02/12/18 13:35 Patient potassium levels currently 4.3. 02/12/18 13:[address] Don, who agrees for patient to be discharged due to current stable potassium level. - Lab Interpretations Lab Results: 02/12/18 12:41 02/12/18 12:41 Lab Results 02/12/18 12:41: Sodium 148, Chloride 108 H, Potassium 4.3, Carbon Dioxide 26, Anion Gap 18, BUN 51 H, Creatinine 1.7 H, Est GFR ( Amer) 47, Est GFR ( Non-Af Amer) 39, Random Glucose 108, Calcium 9.0, Magnesium 2.1, Total Bilirubin 0.4, AST 35, ALT 28, Alkaline Phosphatase 50, Total Protein 6.5, Albumin 3.4, Globulin 3.1, Albumin/Globulin Ratio 1.1 02/12/18 12:41: pO2 42, VBG pH 7.35, VBG pCO2 50.0, VBG HCO3 27.6, VBG Total CO2 29.1 H, VBG O2 Sat (Calc) 80.1 H, VBG Base Excess 1.2, VBG Potassium 4.1, Sodium 143.0, Chloride 111.0 H, Glucose 109, Lactate 1.2, FiO2 21.0, Venous Blood Potassium 4.1 02/12/18 12:41: WBC 5.5, RBC 4.15, Hgb 10.3 L, Hct 33.8 L, MCV 81.4, MCH 24.8 L , MCHC 30.5 L, RDW 16.5 H, Plt Count 169, MPV 10.2, Gran % 77.9 H, Lymph % (Auto ) 16.1 L, [place] % (Auto) 3.6, Eos % (Auto) 2.0, Baso % (Auto) 0.4, Gran # 4.27, Lymph # (Auto) 0.9 L, [place] # (Auto) 0.2, Eos # (Auto) 0.1, Baso # (Auto) 0.02 I have reviewed the lab results: Yes - EKG Interpretation Interpreted by ED Physician: Yes (82 NSR, no stemi, no peaked T waves, or sinusoidial signs) Type: 12 lead EKG - Scribe Statement The provider has reviewed the documentation as recorded by the Gayathri Villegas Provider Scribe Attestation: All medical record entries made by the Scribe were at my direction and personally dictated by me. I have reviewed the chart and agree that the record accurately reflects my personal performance of the history, physical exam, medical decision making, and the department course for this patient. I have also personally directed, reviewed, and agree with the discharge instructions and disposition. Disposition/Present on Arrival - Present on Arrival Any Indicators Present on Arrival: No History of DVT/PE: No History of Uncontrolled Diabetes: No Urinary Catheter: No History of Decub. Ulcer: No History Surgical Site Infection Following: None - Disposition Have Diagnosis and Disposition been Completed?: Yes Diagnosis: Encounter for medical screening examination Disposition: HOME/ ROUTINE Disposition Time: 13:48 Condition: GOOD Discharge Instructions (ExitCare): Basic Metabolic Panel Additional Instructions: AARON NAGY, thank you for letting us take care of you today. Your provider was Maurilio Bhakta and you were treated for POTASSIUM IS HGH. The emergency medical care you received today was directed at your acute symptoms. If you were prescribed any medication, please fill it and take as directed. It may take several days for your symptoms to resolve. Return to the Emergency Department if your symptoms worsen, do not improve, or if you have any other problems. Please contact your doctor or call one of the physicians/clinics you have been referred to that are listed on the Patient Visit Information form that is included in your discharge packet. Bring any paperwork you were given at discharge with you along with any medications you are taking to your follow up visit. Our treatment cannot replace ongoing medical care by a primary care provider outside of the emergency department. Thank you for allowing the [facility] team to be part of your care today. If you had an X-Ray or CT scan: A Radiologist will review the ED reading if any change in treatment is needed we will contact you. If you had a blood, urine, or wound culture: It will take several days for the results, if any change in treatment is needed we will contact you. If you had an STI test: It will take 48 hours for the results. Please call after 1 week if you have not heard back. Referrals: Ceferino Don MD [Staff Provider] - Follow up with primary Forms: [employer] ([place])
[2018-02-12 14:12] VITALS: BP 179/79; PULSE 60; O2SAT 99
--- NOTE | 2018-02-13 09:46 | CARD ---
APPROVED REPORT Date of service: 02/12/2018 EKG Measurement Heart [id number] CT [id number] <Conclusion> Sinus rhythm with frequent premature ventricular complexes Prolonged QT Small inferior q waves No change except PVCs
== END 2018-02-12 14:12 | disposition home or self-care (01) ==
LOC: ED 11:18
DX: Z00.00 Encounter for general adult medical examination without abnormal findings (principal); E03.9 Hypothyroidism, unspecified; I50.9 Heart failure, unspecified; I10 Essential (primary) hypertension; Z87.891 Personal history of nicotine dependence; J44.9 Chronic obstructive pulmonary disease, unspecified; Z85.46 Personal history of malignant neoplasm of prostate